=== PATIENT | male | born 1950 | race Caucasian/White ===

== ENCOUNTER 2018-07-20 15:41 | Inpatient (IN) ==
[2018-07-20] MEDS ORDERED: IOPAMIDOL 100 ML BOTTLE IV ONE (15:42)
[2018-07-20] MEDS ORDERED: 0.9 % SODIUM CHLORIDE 1,000 ML IV ONE (16:13)
--- NOTE | 2018-07-20 17:16 | Emergency Department Note ---
Fever HPI - General Chief Complaint: Fever Stated Complaint: Vomiting, fever, altered mentation Time Seen by Provider: 07/20/18 15:58 Source: patient Mode of arrival: ambulatory Limitations: no limitations - History of Present Illness HPI Narrative: Patient states his been having fever and chills over the past 2 days. But denies any cough or shortness of breath. Denies any sore throat or nasal congestion he has had some episodes of nausea and vomiting over the past 3 days. He was seen by Dr. Jocy Bonilla afternoon at [facility] and a white count was elevated at 21,300 and he is referred for further workup to the ED. Did have a pain pump replacement states 2 weeks ago but uncertain if this is valid as patient is a poor historian denies any urgency frequency or dysuriaTemperature is 98 to the pulse is 80 the respirations are 18 and pulse ox is 99% - Related Data Home Medications Medication Instructions Recorded Confirmed Citalopram [Celexa] 20 mg PO DAILY 09/24/17 07/20/18 Cyanocobalamin [Vitamin B12] 1,000 mcg IM MONTHLY 09/24/17 07/20/18 Fluticasone Propionate [Flonase] 1 spray NS DAILY 09/24/17 07/20/18 Gabapentin [Neurontin] 600 mg PO TID 09/24/17 07/20/18 Hydrochlorothiazide [Oretic] 25 mg PO DAILY 09/24/17 07/20/18 Levothyroxine [Synthroid] 125 mcg PO DAILY 09/24/17 07/20/18 Lisinopril [Zestril] 5 mg PO DAILY 09/24/17 07/20/18 Methocarbamol [Robaxin] 500 mg PO Q6HP PRN 09/24/17 07/20/18 Omeprazole [PriLOSEC] 20 mg PO ACB 09/24/17 07/20/18 Simvastatin [Zocor] 40 mg PO HS 09/24/17 07/20/18 Tamsulosin [Flomax] 0.4 mg PO BID 09/24/17 07/20/18 Zolpidem [Ambien] 10 mg PO HSP PRN 09/24/17 07/20/18 buPROPion HCL [Bupropion Xl] 300 mg PO DAILY 09/24/17 07/20/18 clonazePAM [Klonopin] 2 mg PO TID 09/24/17 07/20/18 Aspirin [Adult Low Dose Aspirin EC] 81 mg PO DAILY 07/20/18 07/20/18 Fexofenadine [Pretty] 1 - 2 tab PO DAILY 07/20/18 07/20/18 Potassium Chloride [Kdur] 20 meq PO DAILY 07/20/18 07/20/18 Allergies Allergy/AdvReac Type Severity Reaction Status Date / Time No Known Drug Allergies Allergy Verified 07/20/18 15:46 Review of Systems All systems ED: reviewed and negative except as stated. Constitutional: Reports: fever, chills Eyes: Denies: eye pain ENT ED: Denies: ear pain, throat pain Cardiovascular: Denies: chest pain, palpitations, dyspnea on exertion Respiratory: Denies: shortness of breath, cough, wheezes Gastrointestinal: Denies: abdominal pain, nausea, vomiting Genitourinary: Denies: dysuria, frequency, urgency Musculoskeletal: Denies: back pain, joint swelling Integumentary: Denies: rash, lesions Neurological: Denies: headache, weakness Psychiatric: Denies: anxiety, depression Endocrine: Denies: fatigue, heat or cold intolerance Hematological/Lymphatic: Denies: easy bleeding Allergic/Immunologic: Denies: facial swelling Fever PMH - Past Medical History PMFSH Narrative: All Active Problems Homicidal behavior (Acute) Excessive drinking alcohol (Acute) Agitation (Acute) Constipation (Acute) Urinary retention (Acute) Medical history: Reports: other (BPH history of retention) Surgical history ED: Reports: other (pain oump) Psychiatric history: Reports: anxiety Family history: Reports: no significant family history - Social History smoking status: Never smoker Alcohol use: Reports: Unknown (patient denies, however old records indicate alcohol abuse) Physical Exam Limitations: no limitations General appearance: alert Head: atraumatic, normocephalic Eye: Present: normal appearance, PERRL ENT: normal exam, normal oropharynx, mucous membranes moist Neck: Present: normal inspection, full ROM Chest: Present: normal inspection, symmetric chest wall rise. Absent: tenderness Respiratory: Present: normal lung sounds bilaterally. Absent: respiratory distress, rales/crackles, wheezes Cardiovascular: Present: regular rate, normal rhythm. Absent: bradycardia Abdominal: Present: soft, normal bowel sounds. Absent: distention, tenderness, guarding, rebound, rigidity Extremities: Present: normal inspection, full ROM. Absent: tenderness Back: Present: normal inspection, full ROM. Absent: tenderness, CVA tenderness (R) Neurological: Present: alert, oriented X3, CN II-XII intact, normal gait, reflexes normal. Absent: motor sensory deficit Psychiatric: Present: flat affect Course Vital Signs Temperature 98.2 F 07/20/18 15:42 Pulse Rate 80 07/20/18 15:42 Respiratory Rate 18 07/20/18 15:42 Pulse Oximetry (%) 99 07/20/18 15:42 Temperature 98.2 F 07/20/18 15:42 Pulse Rate 68 07/20/18 19:35 Respiratory Rate 14 07/20/18 19:35 Blood Pressure 132/82 07/20/18 19:20 Pulse Oximetry (%) 100 07/20/18 19:35 Fever - MDM Narrative Medical decision making narrative: BBC is elevated 18,700 the hemoglobin is 10.2 hematocrit 30.947 segs and 34 bands 16 lymphocytes Actiq acid was 1.3 CO2 is 15 the BUN is 36 creatinine is 1.6 test shows 3 WBCs to RBCs per high-power field. CT of the abdomen revealed a right lower lobe pneumonia - Lab Data Result diagrams: 07/20/18 17:00 Lab Results 07/20/18 07/20/18 07/20/18 Range/Units 16:20 16:20 17:00 WBC 18.7 H (4.5-11.0) K/mcL RBC 3.07 L (4.50-5.90) M/mcL Hgb 10.2 L (13.5-16.5) g/dL Hct 30.9 L (41.0-55.0) % POC Hct 32.0 L (41.0-55.0) % MCV 100.8 H (80.0-100.0) fL MCH 33.1 (26.0-34.0) pg MCHC 32.9 (31.0-36.0) g/dL RDW 15.1 H (11.5-14.5) % Plt Count 318 (140-440) K/mcL MPV 7.4 (7.4-10.4) fL Total Counted 100 Seg Neutrophils % 47 (38-78) % Band Neutrophils % 34 H (0-10) % Lymphocytes % 16 (15-49) % Monocytes % (Manual) 3 (1-12) % Platelet Estimate Normal (NORMAL) RBC Morphology Abnormal (NORMAL) Macrocytosis 1+ A (NONE SEEN) VBG Lactic Acid 1.3 (0.5-2.0) mmol/L POC Sodium 139 (133-145) mmol/L POC Potassium 3.7 (3.3-5.1) mmol/L POC Chloride 111 H (96-108) mmol/L POC Total CO2 15 L (22-30) mmol/L POC BUN 36 H (8-23) mg/dl POC Creatinine 1.6 H (0.7-1.2) mg/dl POC Glucose 101 (70-105) mg/dL POC WB Ioniz Calcium 1.21 (1.16-1.32) mmol/L Urine Color Urine Appearance Urine pH (5.0-9.0) Ur Specific [place] (1.000-1.035) Urine Protein (NEG) mg/dL Urine Glucose (UA) (NEG) mg/dL Urine Ketones (NEG) mg/dL Urine Occult Blood (<0.03) mg/dL Urine Nitrate (NEG) Urine Bilirubin (NEG) mg/dL Urine Urobilinogen (NEG) mg/dL Ur Leukocyte Esterase (NEG) /uL Urine RBC (0-1) /hpf Urine WBC (0-4) /hpf Ur Squamous Epith Cells (0-4) /hpf Urine Bacteria (0) /hpf Hyaline Casts (0-2) /lpf Granular Casts (0) /lpf Urine Mucus (0) /hpf Ur Culture Indicated? 07/20/18 Range/Units 17:48 WBC (4.5-11.0) K/mcL RBC (4.50-5.90) M/mcL Hgb (13.5-16.5) g/dL Hct (41.0-55.0) % POC Hct (41.0-55.0) % MCV (80.0-100.0) fL MCH (26.0-34.0) pg MCHC (31.0-36.0) g/dL RDW (11.5-14.5) % Plt Count (140-440) K/mcL MPV (7.4-10.4) fL Total Counted Seg Neutrophils % (38-78) % Band Neutrophils % (0-10) % Lymphocytes % (15-49) % Monocytes % (Manual) (1-12) % Platelet Estimate (NORMAL) RBC Morphology (NORMAL) Macrocytosis (NONE SEEN) VBG Lactic Acid (0.5-2.0) mmol/L POC Sodium (133-145) mmol/L POC Potassium (3.3-5.1) mmol/L POC Chloride (96-108) mmol/L POC Total CO2 (22-30) mmol/L POC BUN (8-23) mg/dl POC Creatinine (0.7-1.2) mg/dl POC Glucose (70-105) mg/dL POC WB Ioniz Calcium (1.16-1.32) mmol/L Urine Color Yellow Urine Appearance Clear Urine pH 5.0 (5.0-9.0) Ur Specific [place] 1.024 (1.000-1.035) Urine Protein Neg (NEG) mg/dL Urine Glucose (UA) Negative (NEG) mg/dL Urine Ketones Neg (NEG) mg/dL Urine Occult Blood Neg (<0.03) mg/dL Urine Nitrate Neg (NEG) Urine Bilirubin Neg (NEG) mg/dL Urine Urobilinogen Neg (NEG) mg/dL Ur Leukocyte Esterase Neg (NEG) /uL Urine RBC 2 H (0-1) /hpf Urine WBC 3 (0-4) /hpf Ur Squamous Epith Cells 0 (0-4) /hpf Urine Bacteria 0 (0) /hpf Hyaline Casts 68 H (0-2) /lpf Granular Casts 1 H (0) /lpf Urine Mucus Few (0) /hpf Ur Culture Indicated? No Disposition Pt seen by STILL OPERATOR/PA only: No Clinical Impression: Right lower lobe pneumonia Qualifiers: Pneumonia type: due to unspecified organism Qualified Code(s): J18.1 - Lobar pneumonia, unspecified organism Disposition: Xfer As Inpt ([facility]) Condition: Fair Referrals: Jocy Bonilla MD [Primary Care Provider] -
[2018-07-20 17:28] LABS: Mean Cell Volume 100.8 fL (80.0-100.0); Mean Corpuscular HGB Conc 32.9 g/dL (31.0-36.0); Platelet Count 318 K/mcL (140-440); RBC 3.07 M/mcL (4.50-5.90); Red Cell Distribution Width 15.1 % (11.5-14.5)
[2018-07-20 17:57] LABS: Band Neutrophils % 34 % (0-10); Lymphocytes % 16 % (15-49); Macrocytosis 1+ (NONE SEEN); Monocytes % (Manual) 3 % (1-12); Platelet Estimate NORMAL (NORMAL); RBC Morphology ABNORMAL (NORMAL); Segmented Neutrophils % 47 % (38-78)
[2018-07-20 18:04] LABS: Appearance,Urine CLEAR; Bacteria,Urine 0 /hpf (0); Bilirubin,Urine NEG (NEG); Color,Urine YELLOW; Glucose,Urine (UA) NEGATIVE (NEG); Leukocyte Esterase,Urine NEG /uL (NEG); Mucus,Urine FEW /hpf (0); Protein,Urine NEG (NEG); Specific Gravity,Urine 1.024 (1.000-1.035); Urine Blood NEG mg/dL (<0.03); Urine Granular Cast 1 /lpf (0); Urine Hyaline Cast 68 /lpf (0-2); Urine RBC 2 /hpf (0-1); Urine Squamous Epithelial Cell 0 /hpf (0-4); Urine WBC 3 /hpf (0-4); Urobilinogen,Urine NEG (NEG)
--- NOTE | 2018-07-20 18:33 | XRay Report ---
CLINICAL INFORMATION: elevated WBC count COMPARISON: 06/22/2009 FINDINGS: Heart size, mediastinum and pulmonary vessels are normal. Mild patchy right lower lobe infiltrate has developed. Small right pleural effusion also noted. IMPRESSION: Mild patchy right lower lobe infiltrate with small effusion Interpreted and Authenticated by: Garry Ellis 07/20/18
--- NOTE | 2018-07-20 19:30 | Cat Scan Report ---
CLINICAL INFORMATION: Vomiting, fever and elevated white blood cell count COMPARISON: None. TECHNIQUE: Following water enteric contrast, 70 cc of Isovue-300 were injected intravenously, and 60 seconds later, 0.625 mm helical slices were obtained from the mid heart through the subtrochanteric regions. Following reconstruction, 2.5 mm sagittal, coronal and axial reformatted images were processed and reviewed at bone, lung and soft tissue windows. Five minutes later, 0.625 mm helical slices were obtained from the mid heart through the kidneys and viewed at soft tissue windows.The exam was performed using radiation dose optimization techniques including, but not limited to, automated exposure control, adjustment of the mA and/or kV according to patient size and use of iterative reconstruction technique. FINDINGS: Lung bases show a moderatepatchy right lower lobe infiltrate. This is new from a [address] No effusion. Left lung base and heart are unremarkable. Images through the abdomen show the gallbladder and bile ducts, liver, both adrenal glands, spleen, pancreas and aorta are normal in size, configuration, attenuation without focal lesion. Scattered cysts in both kidneys ranging up to 15 mm in the inferior right kidney. A 9 mm low-attenuation lesion posterior cortex superior pole the right kidney unchanged from a 06/24/[address] It should represent a cyst Stomach, small bowel, large bowel and appendix are normal. Images through the pelvis show prostatic, seminal vesicles and urinary bladder are unremarkable. No free air, free fluid or adenopathy. Bone windows show L4-5 posterior fusion and laminectomy changes. The pain pump tubing extends extending through L2-3 leak interlaminar space and a stent in the epidural space to at least T8. No osseous abnormality IMPRESSION: 1. Moderate right lower lobe alveolar infiltrate compatible with pneumonia. This likely accounts for elevated white blood cell count 2. No evidence of abdominal or pelvic infection 3. Small simple cysts scattered throughout both kidneys 4. 3 cm periumbilical hernia containing only mesenteric fat Interpreted and Authenticated by: Garry Ellis 07/20/18
[2018-07-20] MEDS ORDERED: cefTRIAXone 1 GM VIAL IV ONE (19:35)
[2018-07-20] MEDS ORDERED: AZITHROMYCIN 500 MG in DEXTROSE 5% IN WATER 250 ML IV ONE (19:35)
[2018-07-20] MEDS ORDERED: HYDROcodone/APAP 5/325MG TABLET PO ONE (20:07)
--- NOTE | 2018-07-20 20:35 | Internal Med History&Physical ---
Medical - H&P: HPI Patient information: Note initiated : 07/20/18 at 8:31 pm Service Date, if different from initiated Date: [] Patient: Bj Nathan a 68 y/o M admitted on for Vomiting, fever, altered mentation. Chief Complaint: [] Chief complaint: fever and shaking chills History of present illness: Mr. Nathan is a 68 year old M with a history of alcoholism, chronic pain on pain pump, anxiety disorder and hypertension who presents to the ER after he was referred from primary care physician's office. Per history patient hasn't been feeling well over the last few days with frequent fevers shaking chills and generalized body aches. He also endorses to upper respiratory symptoms. He denies any sick contacts. He lives alone in an apartment. During evaluation in primary care physician's office was found to have white count over 21,000 and with concerns of sepsis he was directed for further workup. Initial workup in ER was consistent with right lower lobe pneumonia on chest imaging/white count over 18,000 with 34% bands. Hospitalist service was consulted for admission. Patient is probably started on antibiotics after cultures were drawn. At the time evaluation patient is alert however fairly anxious. He was able to answer some of the questions and endorses history as above and to fever along with chills that has evolved over the last 4 days. Patient frequently sidetracked during conversation and a detailed history could not be obtained. Part of the history was obtained from review of medical records and ER physician. Patient also had a skin tumor removed from his lower back 3 weeks ago but has been doing fine since procedure. Review of systems A 10 point review of system was performed and is negative except as discussed above Medical - H&P: PMH Medical history: Anxiety disorder Seasonal allergy disorder neuropathy Hypertension Hypothyroidism Hyperlipidemia GERD BPH Surgical history: Pain pump Social history: Lives alone 4 kids Ongoing divorce Smoking status: Smoker, status unknown Alcohol use: heavy Medical - H&P: Meds Home Medications Medication Instructions Recorded Confirmed Type Citalopram [Celexa] 20 mg PO DAILY 09/24/17 07/20/18 History Cyanocobalamin [Vitamin B12] 1,000 mcg IM MONTHLY 09/24/17 07/20/18 History Fluticasone Propionate [Flonase] 1 spray NS DAILY 09/24/17 07/20/18 History Gabapentin [Neurontin] 600 mg PO TID 09/24/17 07/20/18 History Hydrochlorothiazide [Oretic] 25 mg PO DAILY 09/24/17 07/20/18 History Levothyroxine [Synthroid] 125 mcg PO DAILY 09/24/17 07/20/18 History Lisinopril [Zestril] 5 mg PO DAILY 09/24/17 07/20/18 History Methocarbamol [Robaxin] 500 mg PO Q6HP PRN 09/24/17 07/20/18 History Omeprazole [PriLOSEC] 20 mg PO ACB 09/24/17 07/20/18 History Simvastatin [Zocor] 40 mg PO HS 09/24/17 07/20/18 History Tamsulosin [Flomax] 0.4 mg PO BID 09/24/17 07/20/18 History Zolpidem [Ambien] 10 mg PO HSP PRN 09/24/17 07/20/18 History buPROPion HCL [Bupropion Xl] 300 mg PO DAILY 09/24/17 07/20/18 History clonazePAM [Klonopin] 2 mg PO TID 09/24/17 07/20/18 History Aspirin [Adult Low Dose Aspirin EC] 81 mg PO DAILY 07/20/18 07/20/18 History Fexofenadine [Pretty] 1 - 2 tab PO DAILY 07/20/18 07/20/18 History Potassium Chloride [Kdur] 20 meq PO DAILY 07/20/18 07/20/18 History Guaifenesin 200 mg PO TID 07/21/18 07/21/18 History Allergies Allergy/AdvReac Type Severity Reaction Status Date / Time No Known Drug Allergies Allergy Verified 07/20/18 15:46 Medical - H&P: Exam - Constitutional Vitals: Temp Pulse Resp BP Pulse Ox 98.2 F 68 14 132/82 100 07/20/18 15:42 07/20/18 19:35 07/20/18 19:35 07/20/18 19:20 07/20/18 19:35 General appearance: moderate distress (anxious) Exam: Head normocephalic Neck no lymphadenopathy Oral cavity dry eye movements symmetrical Anxious Diminished breath sounds bases with expiratory rhonchi Late inspiratory crackles right posterior chest S1 and S2 regular rhythm Abdomen soft lower extremity no cyanosis clubbing Skin no suspicious lesion Psych anxious fidgety Neuro nonfocal Medical - H&P: Reslt - Labs CBC & Chem 7: 07/21/18 04:03 07/21/18 04:03 Labs: Short CBC 07/20/18 Range/Units 17:00 WBC 18.7 H (4.5-11.0) K/mcL Hgb 10.2 L (13.5-16.5) g/dL Hct 30.9 L (41.0-55.0) % Plt Count 318 (140-440) K/mcL Urine 07/20/18 Range/Units 17:48 Urine Color Yellow Urine Appearance Clear Urine pH 5.0 (5.0-9.0) Ur Specific [place] 1.024 (1.000-1.035) Urine Protein Neg (NEG) mg/dL Urine Glucose (UA) Negative (NEG) mg/dL Medical - H&P: A/P (1) Right lower lobe pneumonia Current visit: Yes Status: Acute * Right lower lobe pneumonia-broad antibiotic coverage. Pneumonia severity index over 100. Inpatient admission in light of end organ dysfunction/severe sepsis * Severe sepsis secondary to above-white count 18.7 with 34% bands, evidence of end organ dysfunction, continue management per guidelines, pancultures, antibiotic coverage * Acute kidney injury-creatinine 1.6. Continue crystalloids. Likely secondary to sepsis end organ dysfunction * Metabolic acidosis secondary to sepsis-continue monitoring * History of hypertension -hold hypertensive for 24 hours * Anxiety disorder continue bupropion/citalopram/clonazepam * Neuropathy continue gabapentin * Hypothyroidism continue thyroxine * GERD continue PPI * Hyperlipidemia continue statin * BPH continue Flomax * Prophylaxis heparin * Full code Plan * Broad antibiotic coverage * Sepsis management per guidelines * Pre-existing medical condition management as above * Monitor renal function * Inpatient admission. Anticipate a minimum of two midnight stay
[2018-07-20] MEDS ORDERED: ONDANSETRON 4 MG/2 ML VIAL IV PRN (20:38)
[2018-07-20] MEDS ORDERED: MAGNESIUM SULFATE 2 GM/50 ML BAG IV PRN (20:38)
[2018-07-20] MEDS ORDERED: POTASSIUM CHLORIDE 20 MEQ PACKET PO PRN (20:38)
[2018-07-20] MEDS: 0.9 % SODIUM CHLORIDE 1,000 ML IV SCH (21:25)
[2018-07-20] MEDS: LEVOFLOXACIN 750 MG/150 ML BAG IV SCH (21:26)
[2018-07-20 22:00] LABS: C-Reactive Protein 24.7 mg/dl (0.0-0.8)
[2018-07-20] MEDS: DOCUSATE SODIUM 100 MG CAPSULE PO SCH (22:04)
[2018-07-20] MEDS: ACETAMINOPHEN 325 MG TABLET PO PRN (22:04)
[2018-07-20] MEDS: GABAPENTIN 300 MG CAPSULE PO SCH (22:04)
[2018-07-20] MEDS: TAMSULOSIN 0.4 MG CAPSULE PO SCH (22:05)
[2018-07-20] MEDS: SENNOSIDES/DOCUSATE SODIUM 1 TAB TABLET PO SCH (22:05)
[2018-07-20] MEDS: ZOLPIDEM 5 MG TABLET PO PRN (22:05)
[2018-07-20] MEDS: 0.9 % SODIUM CHLORIDE 10 ML SYRINGE IV SCH (22:05)
[2018-07-20] MEDS: clonazePAM 1 MG TABLET PO SCH (22:05)
[2018-07-20] MEDS: HEPARIN 5,000 UNIT/ML VIAL SQ SCH (22:06)
[2018-07-20] MEDS: SIMVASTATIN 40 MG TABLET PO SCH (22:06)
[2018-07-20] MEDS: BUDESONIDE 0.5 MG/2 ML AMPUL.NEB NEB SCH (22:53)
[2018-07-20] MEDS: IPRATROPIUM/ALBUTEROL 3 ML AMPUL.NEB NEB SCH (22:53)
[2018-07-20] MEDS: METHOCARBAMOL 500 MG TABLET PO PRN (23:59)
[2018-07-20] MEDS: traZODone HCL 50 MG TABLET PO PRN (23:59)
[2018-07-21] MEDS: IPRATROPIUM/ALBUTEROL 3 ML AMPUL.NEB NEB SCH ×2 (03:16→06:50)
[2018-07-21] MEDS: ACETAMINOPHEN 325 MG TABLET PO PRN (03:40)
[2018-07-21] MEDS: 0.9 % SODIUM CHLORIDE 10 ML SYRINGE IV SCH ×3 (05:07→20:42)
[2018-07-21 06:14] LABS: Mean Cell Volume 101.7 fL (80.0-100.0); Mean Corpuscular HGB Conc 32.5 g/dL (31.0-36.0); Platelet Count 311 K/mcL (140-440); RBC 2.94 M/mcL (4.50-5.90); Red Cell Distribution Width 15.1 % (11.5-14.5)
[2018-07-21 06:18] LABS: ALT/SGPT 7 U/l (0-40); Albumin 3.2 gm/dL (3.2-5.2); Albumin/Globulin Ratio 1.1 (1.0-2.3); Alkaline Phosphatase 74 U/L (39-117); Bilirubin,Direct < 0.2 mg/dL (0.0-0.3); Blood Urea Nitrogen 28 mg/dl (8-23); Gamma Glutamyl Transpeptidase 17 U/L (8-61); Uric Acid 5.3 mg/dL (2.5-8.0)
[2018-07-21] MEDS: BUDESONIDE 0.5 MG/2 ML AMPUL.NEB NEB SCH ×2 (06:51→07:03)
[2018-07-21] MEDS: ACETAMINOPHEN 1,000 MG/100 ML BOTTLE IV PRN ×2 (07:14→20:56)
[2018-07-21] MEDS: OMEPRAZOLE 20 MG CAPSULE PO SCH (07:15)
[2018-07-21] MEDS: POTASSIUM CHLORIDE 20 MEQ TABLET PO SCH (07:16)
[2018-07-21] MEDS: METHOCARBAMOL 500 MG TABLET PO PRN (07:16)
[2018-07-21] MEDS: LEVOTHYROXINE 150 MCG TABLET PO SCH (07:17)
[2018-07-21 07:53] LABS: Band Neutrophils % 8 % (0-10); Lymphocytes % 10 % (15-49); Macrocytosis 1+ (NONE SEEN); Monocytes % (Manual) 4 % (1-12); Platelet Estimate NORMAL (NORMAL); RBC Morphology ABNORM (NORMAL); Segmented Neutrophils % 78 % (38-78)
[2018-07-21] MEDS: HYDROCHLOROTHIAZIDE 25 MG TABLET PO SCH (07:55)
[2018-07-21] MEDS: clonazePAM 1 MG TABLET PO SCH ×3 (07:55→20:38)
[2018-07-21] MEDS: buPROPion 150 MG TAB.XL.24H PO SCH (07:56)
[2018-07-21] MEDS: GABAPENTIN 300 MG CAPSULE PO SCH ×3 (07:56→20:37)
[2018-07-21] MEDS: MULTIVIT,THER IRON,CA,FA & MIN 1 TABLET PO SCH (07:56)
[2018-07-21] MEDS: TAMSULOSIN 0.4 MG CAPSULE PO SCH ×2 (07:56→20:38)
[2018-07-21] MEDS: DOCUSATE SODIUM 100 MG CAPSULE PO SCH ×2 (07:56→20:42)
[2018-07-21] MEDS: ASPIRIN 81 MG TAB.CHEW PO SCH (07:56)
[2018-07-21] MEDS: CITALOPRAM 20 MG TABLET PO SCH (07:56)
[2018-07-21] MEDS: HEPARIN 5,000 UNIT/ML VIAL SQ SCH ×2 (07:56→20:37)
[2018-07-21] MEDS: FLUTICASONE PROPIONATE SPRAY.NAS NS SCH (07:57)
[2018-07-21] MEDS: LISINOPRIL 5 MG TABLET PO SCH (07:58)
[2018-07-21] MEDS ORDERED: IPRATROPIUM/ALBUTEROL 3 ML AMPUL.NEB NEB PRN (09:11)
[2018-07-21] MEDS: cefTRIAXone 2 GM in DEXTROSE 5% IN WATER 50 ML IV SCH (11:02)
--- NOTE | 2018-07-21 12:01 | Internal Med Progress Note ---
Medical - PN: Subj Patient information: Note initiated : 07/21/18 at 11:56 am Service Date, if different from initiated Date: [] Patient: Bj Nathan a 68 y/o M admitted on 07/20/18 for Vomiting, fever, altered mentation. Chief Complaint: [] Interval history: Mr. Nathan is a 68 year old M with a history of alcoholism, chronic pain on pain pump, anxiety disorder and hypertension who presents to the ER after he was referred from primary care physician's office. Per history patient hasn't been feeling well over the last few days with frequent fevers shaking chills and generalized body aches. He also endorses to upper respiratory symptoms. He denies any sick contacts. He lives alone in an apartment. During evaluation in primary care physician's office was found to have white count over 21,000 and w ith concerns of sepsis he was directed for further workup. Initial workup in ER was consistent with right lower lobe pneumonia on chest imaging/white count over 18,000 with 34% bands. Hospitalist service was consulted for admission. Patient is probably started on antibiotics after cultures were drawn. At the time evaluation patient is alert however fairly anxious. He was able to answer some of the questions and endorses history as above and to fever along with chills that has evolved over the last 4 days. Patient frequently sidetracked during conversation and a detailed history could not be obtained. Part of the history was obtained from review of medical records and ER physician. Patient also had a skin tumor removed from his lower back 3 weeks ago but has been doing fine since procedure. 07/21-patient doing well. No overnight events. No concerns per staff. He remains anxious however much improved breathing. No shaking chills or high- grade fever. White count downtrending from 18.7-18. Sats on room air. Mycoplasma/strep pneumo serology negative. Bandemia resolved. Creatinine improved from 1.6-1.3. Continue existing treatment/nutrition support. Anticipate discharge in 24-48 hours if continues to improve and white count normalizes. - Constitutional Vitals: Vital Signs Temp Pulse Resp BP Pulse Ox 98.7 F 88 18 124/59 97 07/21/18 07:20 07/21/18 07:20 07/21/18 07:20 07/21/18 07:20 07/21/18 07:20 Period Temp Pulse Resp BP Sys/[place] Pulse Ox Last 24 Hr 97.9 F-98.7 F 65-90 - 105-144/59-92 95-100 Intake and Output 07/20/18 07/21/18 07/21/18 21:59 05:59 13:59 Intake Total 1000 500 440 Output Total 450 1601 300 Balance 550 -1101 140 Weight 153 lb Intake & Output: Intake & Output 07/20/18 07/21/18 07/21/18 21:59 05:59 13:59 Intake Total 1000 500 440 Output Total 450 1601 300 Balance 550 -1101 140 Weight 153 lb Intake: IV 1000 400 Sodium Chloride 0.9% 1,000 ml @ 1000 Wide Open IV BOLUS ONE Rx#: [id number] Oral 100 440 Output: Void Amount 450 1600 300 # of times incontinent of urine 1 Other: Meal Breakfast Percent of Meal Consumed 100% Urine Appearance Clear Clear Urine Color Bright Yellow Straw General appearance: no acute distress Exam: Improved anxiety Nonlabored breathing Nondistended abdomen Ambulating Medical - PN: Obj Da - Labs CBC & Chem 7: 07/21/18 04:03 07/21/18 04:03 Labs: Abnormal Lab Results 07/21/18 07/21/18 07/20/18 04:03 04:03 21:13 WBC 18.0 H RBC 2.94 L Hgb 9.7 L Hct 29.9 L POC Hct MCV 101.7 H RDW 15.1 H Band Neutrophils % Lymphocytes % 10 L RBC Morphology Abnorm A Macrocytosis 1+ A ESR POC Chloride Carbon Dioxide 15 L POC Total CO2 POC BUN BUN 28 H Creatinine 1.3 H POC Creatinine Glucose 112 H C-Reactive Protein 24.7 H Urine RBC Hyaline Casts Granular Casts 07/20/18 07/20/18 07/20/18 21:13 17:48 17:00 WBC 18.7 H RBC 3.07 L Hgb 10.2 L Hct 30.9 L POC Hct MCV 100.8 H RDW 15.1 H Band Neutrophils % 34 H Lymphocytes % RBC Morphology Macrocytosis 1+ A ESR 47 H POC Chloride Carbon Dioxide POC Total CO2 POC BUN BUN Creatinine POC Creatinine Glucose C-Reactive Protein Urine RBC 2 H Hyaline Casts 68 H Granular Casts 1 H 07/20/18 16:20 WBC RBC Hgb Hct POC Hct 32.0 L MCV RDW Band Neutrophils % Lymphocytes % RBC Morphology Macrocytosis ESR POC Chloride 111 H Carbon Dioxide POC Total CO2 15 L POC BUN 36 H BUN Creatinine POC Creatinine 1.6 H Glucose C-Reactive Protein Urine RBC Hyaline Casts Granular Casts Meds: Medications Acetaminophen (Tylenol) 650 mg PO Q4-6HP PRN PRN Reason: PAIN/FEVER > 101 Last Admin: 07/21/18 03:40 Dose: 650 mg Documented by: Albuterol/Ipratropium (Duoneb) 3 ml NEB Q4HP PRN PRN Reason: Shortness Of Breath Or Wheezing Aspirin (Aspirin) 81 mg PO DAILY [facility] Last Admin: 07/21/18 07:56 Dose: 81 mg Documented by: Bupropion HCl (Wellbutrin Xl) 300 mg PO DAILY [facility] Last Admin: 07/21/18 07:56 Dose: 300 mg Documented by: Citalopram Hydrobromide (Celexa) 20 mg PO DAILY [facility] Last Admin: 07/21/18 07:56 Dose: 20 mg Documented by: Clonazepam (Klonopin) 2 mg PO TID [facility] Last Admin: 07/21/18 07:55 Dose: 2 mg Documented by: Cyanocobalamin (Vitamin B12) 1,000 mcg IM MONTHLY [facility] Docusate Sodium (Colace) 100 mg PO BID [facility] Last Admin: 07/21/18 07:56 Dose: 100 mg Documented by: Fluticasone Propionate (Flonase) 1 spray NS DAILY [facility] Last Admin: 07/21/18 07:57 Dose: Not Given Documented by: Gabapentin (Neurontin) 600 mg PO TID [facility] Last Admin: 07/21/18 07:56 Dose: 600 mg Documented by: Heparin Sodium (Porcine) (Heparin) 5,000 unit SQ Q12 [facility] Last Admin: 07/21/18 07:56 Dose: 5,000 unit Documented by: Hydrochlorothiazide (Oretic) 25 mg PO DAILY [facility] Last Admin: 07/21/18 07:55 Dose: 25 mg Documented by: Ceftriaxone Sodium 2 gm/ (Dextrose) 50 mls @ 100 mls/hr IV Q24H [facility] Last Admin: 07/21/18 11:02 Dose: 100 mls/hr Documented by: Levofloxacin (Levaquin) 750 mg in 150 mls @ 100 mls/hr IV Q48H [facility] Last Infusion: 07/20/18 23:31 Dose: Infused Documented by: Magnesium Sulfate (Magnesium Sulfate) 2 gm in 50 mls @ 50 mls/hr IV UD PRN PRN Reason: MG = or < 1.7 Sodium Chloride (Sodium Chloride 0.9%) 1,000 mls @ 50 mls/hr IV .Q20H [facility] Stop: 07/23/18 08:37 Last Admin: 07/20/18 21:25 Dose: 50 mls/hr Documented by: Acetaminophen (Ofirmev) 1,000 mg in 100 mls @ 200 mls/hr IV Q6HP PRN PRN Reason: PAIN/FEVER > 101 Last Admin: 07/21/18 07:14 Dose: 200 mls/hr Documented by: Iron Carb/Multivit/[place]/Folic Acid (Multivitamin W/Minerals) 1 tab PO DAILY [facility] Last Admin: 07/21/18 07:56 Dose: 1 tab Documented by: Levothyroxine Sodium (Synthroid) 125 mcg PO ACB [facility] Last Admin: 07/21/18 07:17 Dose: 125 mcg Documented by: Lisinopril (Zestril) 5 mg PO DAILY [facility] Last Admin: 07/21/18 07:58 Dose: Not Given Documented by: Methocarbamol (Robaxin) 500 mg PO Q6HP PRN PRN Reason: Muscle Spasm Last Admin: 07/21/18 07:16 Dose: 500 mg Documented by: Omeprazole (Prilosec) 20 mg PO ACB [facility] Last Admin: 07/21/18 07:15 Dose: 20 mg Documented by: Ondansetron HCl (Zofran) 4 mg IV Q4-6HP PRN PRN Reason: Nausea And Vomiting Pneumococcal Polyvalent Vaccine (Pneumovax 23) 0.5 ml IM .ONCE ONE Stop: 07/22/18 10:01 Potassium Chloride (Klor-Con) 40 meq PO DAILYP PRN PRN Reason: K+ < 3.5 Potassium Chloride (Kdur) 20 meq PO QAMCC [facility] Last Admin: 07/21/18 07:16 Dose: 20 meq Documented by: Senna/Docusate Sodium (Senna Plus Tablet) 1 tab PO [facility] Last Admin: 07/20/18 22:05 Dose: 1 tab Documented by: Simvastatin (Zocor) 40 mg PO [facility] Last Admin: 07/20/18 22:06 Dose: 40 mg Documented by: Sodium Chloride (Saline Flush) 10 ml IV Q8 [facility] Last Admin: 07/21/18 05:07 Dose: Not Given Documented by: Tamsulosin HCl (Flomax) 0.4 mg PO BID [facility] Last Admin: 07/21/18 07:56 Dose: 0.4 mg Documented by: Trazodone HCl (Desyrel) 50 mg PO [facility] PRN PRN Reason: Insomnia Last Admin: 07/20/18 23:59 Dose: 50 mg Documented by: Zolpidem Tartrate (Ambien) 10 mg PO HSP PRN PRN Reason: Insomnia Last Admin: 07/20/18 22:05 Dose: 10 mg Documented by: Medical - PN: A/P - Time Spent With Patient Total time spent is greater than 50% in coordination of care (as documented) at patient's floor/unit and/or counseling patient: 25 - 35 minutes (1) Right lower lobe pneumonia Status: Acute Assessment and plan: * Right lower lobe pneumonia-clinical improvement noted on broad antibiotic coverage. * Severe sepsis secondary to above-clinical improvement noted with downtrending white count and improving end organ dysfunction. * Acute kidney injury-creatinine improved 1.3. Continue crystalloids. * Metabolic acidosis secondary severe sepsis. Clinically resolved * History of hypertension -restart home meds * Anxiety disorder continue bupropion/citalopram/clonazepam * Neuropathy continue gabapentin * Hypothyroidism continue thyroxine * GERD continue PPI * Hyperlipidemia continue statin * BPH continue Flomax * Prophylaxis heparin * Full code Plan * Continue Broad antibiotic coverage * Pre-existing medical condition management as above * Nutrition support/rehabilitation Current Visit: Yes Medical - PN: Qual - VTE Deep Vein Thrombosis/Pulmonary Embolism Present on Admission: No
[2018-07-21] MEDS: 0.9 % SODIUM CHLORIDE 1,000 ML IV SCH (16:35)
[2018-07-21] MEDS: ZOLPIDEM 5 MG TABLET PO PRN (20:38)
[2018-07-21] MEDS: traZODone HCL 50 MG TABLET PO PRN (20:38)
[2018-07-21] MEDS: SIMVASTATIN 40 MG TABLET PO SCH (20:38)
[2018-07-21] MEDS: SENNOSIDES/DOCUSATE SODIUM 1 TAB TABLET PO SCH (20:42)
[2018-07-22] MEDS: 0.9 % SODIUM CHLORIDE 1,000 ML IV SCH ×2 (00:39→13:19)
[2018-07-22] MEDS: 0.9 % SODIUM CHLORIDE 10 ML SYRINGE IV SCH (04:26)
[2018-07-22 05:57] LABS: Mean Cell Volume 100.8 fL (80.0-100.0); Mean Corpuscular HGB Conc 33.8 g/dL (31.0-36.0); Platelet Count 334 K/mcL (140-440); RBC 2.91 M/mcL (4.50-5.90); Red Cell Distribution Width 14.7 % (11.5-14.5)
[2018-07-22] MEDS: ACETAMINOPHEN 1,000 MG/100 ML BOTTLE IV PRN (06:02)
[2018-07-22 06:47] LABS: ALT/SGPT 6 U/l (0-40); Albumin 3.2 gm/dL (3.2-5.2); Alkaline Phosphatase 86 U/L (39-117); Bilirubin,Direct < 0.2 mg/dL (0.0-0.3); Blood Urea Nitrogen 10 mg/dl (8-23); Gamma Glutamyl Transpeptidase 21 U/L (8-61); Uric Acid 4.3 mg/dL (2.5-8.0)
[2018-07-22 07:39] LABS: Band Neutrophils % 3 % (0-10); Eosinophils % (Manual) 2 % (0-7); Lymphocytes % 16 % (15-49); Macrocytosis 1+ (NONE SEEN); Monocytes % (Manual) 4 % (1-12); Platelet Estimate NORMAL (NORMAL); RBC Morphology ABNORM (NORMAL); Segmented Neutrophils % 75 % (38-78)
[2018-07-22] MEDS: OMEPRAZOLE 20 MG CAPSULE PO SCH (07:49)
[2018-07-22] MEDS: GABAPENTIN 300 MG CAPSULE PO SCH (07:49)
[2018-07-22] MEDS: ASPIRIN 81 MG TAB.CHEW PO SCH (07:49)
[2018-07-22] MEDS: buPROPion 150 MG TAB.XL.24H PO SCH (07:49)
[2018-07-22] MEDS: DOCUSATE SODIUM 100 MG CAPSULE PO SCH (07:49)
[2018-07-22] MEDS: LISINOPRIL 5 MG TABLET PO SCH ×2 (07:50→07:59)
[2018-07-22] MEDS: CITALOPRAM 20 MG TABLET PO SCH (07:50)
[2018-07-22] MEDS: HEPARIN 5,000 UNIT/ML VIAL SQ SCH (07:50)
[2018-07-22] MEDS: HYDROCHLOROTHIAZIDE 25 MG TABLET PO SCH (07:50)
[2018-07-22] MEDS: clonazePAM 1 MG TABLET PO SCH (07:50)
[2018-07-22] MEDS: MULTIVIT,THER IRON,CA,FA & MIN 1 TABLET PO SCH (07:50)
[2018-07-22] MEDS: POTASSIUM CHLORIDE 20 MEQ TABLET PO SCH (07:50)
[2018-07-22] MEDS: FLUTICASONE PROPIONATE SPRAY.NAS NS SCH (07:51)
[2018-07-22] MEDS: LEVOTHYROXINE 150 MCG TABLET PO SCH (07:56)
[2018-07-22] MEDS: cefTRIAXone 2 GM in DEXTROSE 5% IN WATER 50 ML IV SCH (08:04)
[2018-07-22] MEDS: TAMSULOSIN 0.4 MG CAPSULE PO SCH (08:04)
--- NOTE | 2018-07-22 09:46 | Discharge Summary ---
Medical - DS: Prov Patient information: Note initiated : 07/22/18 at 9:44 am Service Date, if different from initiated Date: [] Patient: Bj Nathan 68 y/o M admitted on 07/20/18 for Vomiting, fever, altered mentation. Chief Complaint: [] Date of admission: 07/20/18 20:37 Discharge date: 07/22/18 Primary care physician: Jocy Bonilla Consults: 07/20/18 Consult to Physician [CONS] Stat Comment: Consulting Provider: Clay Maloney Reason For Exam: Physician to Consult Medical - DS: Meds - Discharge Medications Prescriptions: Cefdinir 300 mg PO BID #10 cap Levofloxacin [Levaquin] 750 mg PO DAILY #3 tab Active and Home Medications: Home Medications Citalopram [Celexa] 20 mg PO DAILY 09/24/17 [History Confirmed 07/20/18 Last Taken Unknown] Cyanocobalamin [Vitamin B12] 1,000 mcg IM MONTHLY 09/24/17 [History Confirmed 07/20/18 Last Taken Unknown] Fluticasone Propionate [Flonase] 1 spray NS DAILY 09/24/17 [History Confirmed 07/20/18 Last Taken Unknown] Gabapentin [Neurontin] 600 mg PO TID 09/24/17 [History Confirmed 07/20/18 Last Taken Unknown] Hydrochlorothiazide [Oretic] 25 mg PO DAILY 09/24/17 [History Confirmed 07/20/18 Last Taken Unknown] Levothyroxine [Synthroid] 125 mcg PO DAILY 09/24/17 [History Confirmed 07/20/18 Last Taken Unknown] Lisinopril [Zestril] 5 mg PO DAILY 09/24/17 [History Confirmed 07/20/18 Last Taken Unknown] Methocarbamol [Robaxin] 500 mg PO Q6HP PRN 09/24/17 [History Confirmed 07/20/18 Last Taken Unknown] Omeprazole [PriLOSEC] 20 mg PO ACB 09/24/17 [History Confirmed 07/20/18 Last Taken Unknown] Simvastatin [Zocor] 40 mg PO HS 09/24/17 [History Confirmed 07/20/18 Last Taken Unknown] Tamsulosin [Flomax] 0.4 mg PO BID 09/24/17 [History Confirmed 07/20/18 Last Taken Unknown] Zolpidem [Ambien] 10 mg PO HSP PRN 09/24/17 [History Confirmed 07/20/18 Last Taken Unknown] buPROPion HCL [Bupropion Xl] 300 mg PO DAILY 09/24/17 [History Confirmed 07/20/18 Last Taken Unknown] clonazePAM [Klonopin] 2 mg PO TID 09/24/17 [History Confirmed 07/20/18 Last Taken Unknown] Aspirin [Adult Low Dose Aspirin EC] 81 mg PO DAILY 07/20/18 [History Confirmed 07/20/18 Last Taken Unknown] Fexofenadine [Pretty] 1 - 2 tab PO DAILY 07/20/18 [History Confirmed 07/20/18 Last Taken Unknown] Potassium Chloride [Kdur] 20 meq PO DAILY 07/20/18 [History Confirmed 07/20/18 Last Taken Unknown] Guaifenesin 200 mg PO TID 07/21/18 [History Confirmed 07/21/18 Last Taken 07/20/18] Cefdinir 300 mg PO BID #10 cap 07/22/18 [Rx Last Taken Unknown] Levofloxacin [Levaquin] 750 mg PO DAILY #3 tab 07/22/18 [Rx Last Taken Unknown] Medical - DS: Hosp Hospital course: Discharge diagnosis * Right lower lobe pneumonia-clinical improvement noted on broad antibiotic coverage. Continue additional 5 days oral antibiotics * Severe sepsis secondary to above-clinical improvement noted . Leukocytosis resolved. Discharge in an additional 5 days antibiotics * Acute kidney injury-fully resolved. Creatinine down from 1.6 2->0.8 * Metabolic acidosis secondary severe sepsis. Resolved * History of hypertension -continue medications on discharge * Anxiety disorder continue bupropion/citalopram/clonazepam * Neuropathy continue gabapentin * Hypothyroidism continue thyroxine * GERD continue PPI * Hyperlipidemia continue statin * BPH continue Flomax Brief hospital course Mr. Nathan is a 68 year old M with a history of alcoholism, chronic pain on pain pump, anxiety disorder and hypertension who presents to the ER after he was referred from primary care physician's office. Per history patient hasn't been feeling well over the last few days with frequent fevers shaking chills and generalized body aches. He also endorses to upper respiratory symptoms. He denies any sick contacts. He lives alone in an apartment. During evaluation in primary care physician's office was found to have white count over 21,000 and with concerns of sepsis he was directed for further workup. Initial workup in ER was consistent with right lower lobe pneumonia on chest imaging/white count over 18,000 with 34% bands. Hospitalist service was consulted for admission. Patient is probably started on antibiotics after cultures were drawn. At the time evaluation patient is alert however fairly anxious. He was able to answer some of the questions and endorses history as above and to fever along with chills that has evolved over the last 4 days. Patient frequently sidetracked during conversation and a detailed history could not be obtained. Part of the history was obtained from review of medical records and ER physician. Patient also had a skin tumor removed from his lower back 3 weeks ago but has been doing fine since procedure. 07/21-patient doing well. No overnight events. No concerns per staff. He remains anxious however much improved breathing. No shaking chills or high- grade fever. White count downtrending from 18.7-18. Sats on room air. Mycoplasma/strep pneumo serology negative. Bandemia resolved. Creatinine improved from 1.6-1.3. Continue existing treatment/nutrition support. Anticipate discharge in 24-48 hours if continues to improve and white count no rmalizes. 07/22-patient doing well. No overnight events. Fever defervesced. Shortness resolved. White count downtrending. Continue antibiotic coverage for additional 5 days. Discharging with advice to follow with PCP. Discharge diagnosis: . - Time Spent with Patient Total time spent providing and/or coordinating discharge services: Greater than 30 minutes Medical - DS: Exam - Constitutional Vitals: Vital Signs Temp Pulse Pulse Resp BP BP Pulse Ox 07/22/18 07:16 98.7 F 72 14 110/65 94 07/22/18 04:25 98.9 F 73 14 135/75 94 07/21/18 23:35 98.7 F 72 14 119/74 96 07/21/18 21:00 97.8 F 86 14 118/99 96 07/21/18 20:00 14 96 07/21/18 17:32 99.9 F H 07/21/18 16:00 100.3 F H 81 20 147/75 07/21/18 12:00 97.7 F 92 H 18 138/69 95 Intake and Output 07/21/18 07/22/18 07/22/18 21:59 05:59 13:59 Intake Total 1150 1130 100 Output Total 625 550 Balance 525 580 100 Intake: IV 1150 100 100 Sodium Chloride 0.9% 1,000 ml @ 1000 50 mls/hr IV .Q20H [facility] Rx#: [id number] Oral 1030 Output: Void Amount 625 550 Other: Urine Appearance Clear Clear Urine Color Bright Yellow Bright Yellow # Voids 1 Weight 152 lb Medical - DS: Data Labs on day of discharge: Labs from last 24 hours 07/22/18 07/22/18 04:36 04:36 WBC 13.2 H RBC 2.91 L Hgb 9.9 L Hct 29.4 L MCV 100.8 H MCH 34.1 H MCHC 33.8 RDW 14.7 H Plt Count 334 MPV 7.4 Total Counted 100 Seg Neutrophils % 75 Band Neutrophils % 3 Lymphocytes % 16 Monocytes % (Manual) 4 Eosinophils % (Manual) 2 Platelet Estimate Normal RBC Morphology Abnorm A Macrocytosis 1+ A Sodium 140 Potassium 3.5 Chloride 109 H Carbon Dioxide 17 L Anion Gap 14.0 BUN 10 Creatinine 0.8 GFR Calculation 92 Glucose 102 Uric Acid 4.3 Calcium 9.2 Phosphorus 3.0 Magnesium 2.0 Total Bilirubin 0.3 Direct Bilirubin < 0.2 GGT 21 AST 14 ALT 6 Alkaline Phosphatase 86 Lactate Dehydrogenase 210 Total Protein 6.5 Albumin 3.2 Globulin 3.3 Albumin/Globulin Ratio 1.0 Triglycerides 139 Preliminary micro results at discharge 07/20/18 16:20 Blood Culture - Preliminary Blood 07/20/18 16:30 Blood Culture - Preliminary Blood Medical - DS: A/P - Patient/Caregiver Discharge Instructions Activity: increase activity as tolerated Diet: Regular Diet Additional Instructions: Follow-up PCP in 5 days I recommend primary care physician to check CBC BMP as a posthospital follow-up and Chest x-ray in 1 week. Antibiotics for additional 5 days oxygen @ 3 L Return to ER if worsening fever chills shortness of breath, diarrhea, bleeding Review risk and side effect profile of medications including antibiotics. Side effect may include mild to severe reaction including rash, diarrhea, cdiff and even which can be prevented by close follow-up with PCP and monitoring for side effects Continue diet and activity as advised Discussed importance of medication adherence Please review medication list with patient prior to discharge Please schedule follow-up with PCP/Providers prior to discharge and provide printouts Prescriptions: Cefdinir 300 mg PO BID #10 cap Levofloxacin [Levaquin] 750 mg PO DAILY #3 tab - Problem Maintenance (1) Right lower lobe pneumonia Status: Acute Qualifiers: Pneumonia type: due to unspecified organism Qualified Code(s): J18.1 - Lobar pneumonia, unspecified organism - Follow up Plan Follow up with: Jocy Bonilla MD [Primary Care Provider] - Disposition: Home, Self-Care Prognosis: Fair Rehab Potential: Fair I certify that the patient requires SNF services: No Overall status at discharge: patient is progressing back to baseline Medical - DS: Qual - VTE Deep Vein Thrombosis/Pulmonary Embolism Present on Admission: No
[2018-07-22] MEDS ORDERED: PNEUMOCOCCAL 23-VAL P-SAC VAC 0.5 ML SYRINGE IM ONE (10:00)
[2018-07-22] MEDS: LEVOFLOXACIN 750 MG/150 ML BAG IV SCH (10:03)
[2018-08-03] MEDS ORDERED: CYANOCOBALAMIN 1,000 MCG/ML VIAL IM SCH (09:00)
== END 2018-07-22 13:35 | disposition home or self-care (01) | DRG 871 ==
LOC: ED 15:41 → MEDSUR 20:37
PROVIDERS: ADMIT Internal Medicine; ATTEND Internal Medicine

== ENCOUNTER 2019-11-22 11:53 | Observation (INO) ==
[2019-11-22] MEDS ORDERED: IOPAMIDOL 100 ML BOTTLE IV ONE (11:54)
--- NOTE | 2019-11-22 12:04 | Emergency Department Note ---
Neuro HPI General Chief Complaint: Stroke Symptoms Stated Complaint: Left Sided Weakness Time Seen by Provider: 11/22/19 11:59 Source: patient Mode of arrival: ambulatory Limitations: no limitations History of Present Illness HPI Narrative: Narrative: This patient noted 24 hours ago that he was having left-sided weakness in his arm and leg with some difficulty walking and difficulty using his left hand. 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 He actually went to the pain clinic today the doctors there noted that he was having weakness and so sent him to the emergency room. He has had no change in speech vision and no headache. He does not take blood thinners. Has never had a stroke before. No history of diabetes or hypertension. Onset (ago): hour(s) Location: left arm and left leg History of same: No Severity: moderate Quality: weak and numb Improves with: none Worsens with: none Context: sudden onset On Anticoagulants: No Associated symptoms: Reports confusion; Denies chest pain, headaches, nausea/vomiting, vertigo, seizures and shortness of breath Treatments Prior to Arrival: none Related Data Home Medications Medication Instructions Recorded Confirmed acetaminophen 500 mg tablet 1,500 mg PO TID PRN tab 07/26/19 09/13/19 furosemide 40 mg tablet 40 mg PO QAM 09/13/19 09/13/19 mecobalamin (vitamin B12) 1,000 1,000 mcg PO QDAY 09/13/19 09/13/19 mcg chewable tablet tramadol 50 mg tablet 50 mg PO TID PRN 09/13/19 09/13/19 bupropion HCl 150 mg 24 hr tablet, See Rx Instructions PO .COMPLEX 11/22/19 11/22/19 extended release citalopram 20 mg tablet See Rx Instructions PO .COMPLEX 11/22/19 11/22/19 clonazepam 2 mg tablet See Rx Instructions PO .COMPLEX 11/22/19 11/22/19 cyanocobalamin (vitamin B-12) See Rx Instructions IM .COMPLEX 11/22/19 11/22/19 1,000 mcg/mL injection solution fexofenadine 180 mg tablet See Rx Instructions PO .COMPLEX 11/22/19 11/22/19 fluticasone propionate 50 See Rx Instructions INTRANASAL 11/22/19 11/22/19 mcg/actuation nasal .COMPLEX spray,suspension gabapentin 300 mg capsule See Rx Instructions PO .COMPLEX 11/22/19 11/22/19 hydrochlorothiazide 25 mg tablet See Rx Instructions PO .COMPLEX 11/22/19 11/22/19 ipratropium bromide 42 mcg (0.06 See Rx Instructions INTRANASAL 11/22/19 11/22/19 %) nasal spray .COMPLEX levothyroxine 150 mcg tablet See Rx Instructions PO .COMPLEX 11/22/19 11/22/19 methocarbamol 500 mg tablet See Rx Instructions PO .COMPLEX PRN 11/22/19 11/22/19 multivitamin See Rx Instructions PO .COMPLEX 11/22/19 omeprazole 20 mg capsule,delayed See Rx Instructions PO .COMPLEX 11/22/19 11/22/19 release potassium chloride 20 mEq See Rx Instructions PO .COMPLEX 11/22/19 11/22/19 tablet,extended release(part/cryst) simvastatin 40 mg tablet See Rx Instructions PO .COMPLEX 11/22/19 11/22/19 tamsulosin 0.4 mg capsule See Rx Instructions PO .COMPLEX 11/22/19 11/22/19 trazodone 50 mg tablet See Rx Instructions PO .COMPLEX 11/22/19 11/22/19 zolpidem 10 mg tablet See Rx Instructions PO .COMPLEX PRN 11/22/19 11/22/19 Allergies Allergy/AdvReac Type Severity Reaction Status Date / Time cephalexin [From Keflex] Allergy Severe Unknown Verified 09/13/19 12:50 Cyclobenzaprine Allergy Unknown Unknown Verified 09/13/19 12:50 [From Flexeril] fentanyl AdvReac Unknown nausea and Verified 11/22/19 11:54 vomiting Review of Systems ROS ROS Narrative: Narrative: All systems ED: reviewed and negative except as stated. 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) Hyperlipidemia (Chronic) Hypotension, unspecified (Chronic) Hypertensive chronic kidney disease with stage 1 through stage 4 chronic kidney disease, or unspecified chronic kidney disease (Chronic) Anorexia (Chronic) Osteoarthritis (Chronic) Back pain (Chronic) Polyarthralgia (Chronic) Long-term use of aspirin therapy (Chronic) Seasonal allergies (Chronic) BPH (benign prostatic hyperplasia) (Chronic) GERD (gastroesophageal reflux disease) (Chronic) Mixed hyperlipidemia (Chronic) COPD (chronic obstructive pulmonary disease) (Chronic) Asthma (Chronic) Pain of right hip joint (Chronic) Lumbosacral radiculitis (Chronic) Failed back syndrome (Chronic) Idiopathic osteoarthritis (Chronic) ELINOR positive (Chronic) Elevated erythrocyte sedimentation rate (Chronic) Macrocytic anemia (Chronic) Insomnia (Chronic) Hypothyroidism (Chronic) Hypertension (Chronic) Urinary hesitancy (Chronic) Anxiety and depression (Chronic) Acute bronchospasm (Chronic) Dizziness and giddiness (Chronic) Acute hypokalemia (Chronic) Arthritis (Chronic) Homicidal behavior (Chronic) Excessive drinking alcohol (Chronic) Agitation (Chronic) Constipation (Chronic) Urinary retention (Chronic) Right lower lobe pneumonia (Chronic) Medical History (Updated 11/22/19 @ 19:06 by Goyo Reid MD) Acute bronchospasm (Chronic) Acute hypokalemia (Chronic) Agitation (Chronic) ELINOR positive (Chronic) Anorexia (Chronic) Anxiety and depression (Chronic) Arthritis (Chronic) Asthma (Chronic) Back pain (Chronic) 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) BPH (benign prostatic hyperplasia) (Chronic) Chronic pain (Chronic) with intrathecal pump in place Constipation (Chronic) COPD (chronic obstructive pulmonary disease) (Chronic) Dizziness and giddiness (Chronic) Elevated erythrocyte sedimentation rate (Chronic) Excessive drinking alcohol (Chronic) Failed back syndrome (Chronic) GERD (gastroesophageal reflux disease) (Chronic) Homicidal behavior (Chronic) Hyperlipidemia (Chronic) Hypertension (Chronic) Hypertensive chronic kidney disease with stage 1 through stage 4 chronic kidney disease, or unspecified chronic kidney disease (Chronic) Hypotension, unspecified (Chronic) Hypothyroidism (Chronic) Idiopathic osteoarthritis (Chronic) Insomnia (Chronic) Long-term use of aspirin therapy (Chronic) Low back pain (Chronic) Lumbosacral radiculitis (Chronic) Macrocytic anemia (Chronic) Mixed hyperlipidemia (Chronic) Myofascial pain (Chronic) Neuropathic pain (Chronic) right lower limb Osteoarthritis (Chronic) Pain of right hip joint (Chronic) Polyarthralgia (Chronic) Right lower lobe pneumonia (Chronic) Seasonal allergies (Chronic) Soft tissue disorder, unspecified (Chronic) 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) Urinary hesitancy (Chronic) Urinary retention (Chronic) Surgical History History of back surgery (Chronic ~2015) fusion 2016 History of colonoscopy (Chronic ~2014) History of left knee surgery (Chronic ~2001) History of right knee surgery (Chronic ~2003) History of shoulder surgery (Chronic ~2006) left 2006; right shoulder reversal 2010 History of tonsillectomy (Chronic) S/P epidural steroid injection (Chronic) LESI #3 L3-4 w/o sed 05/06/19, LESI #2 L3-4 w/o sed 02/18/19, LESI #1 L3-4 w/o sed 11/10/2018, TF CHELLE #2 Right L4-5 w/o sed 07/06/15, TF CHELLE #1 Right L4-5 w/o sed 06/15/15 S/P insertion of intrathecal pump (Acute) Replacement [employer] pump w/ sed 06/10/18, Replacement [employer] Pump Implant ([facility]) 10/11/2011 Family History Mother Arthritis Cancer Father Hypertension Diabetes Son Diabetes Social History Smoking Status: Former smoker Alcohol Intake Frequency: does not drink Substance Use: marijuana Exam Narrative Narrative: Narrative: General Limitations: no limitations Head Head: atraumatic, normocephalic and normal inspection Eye Eye: Present normal appearance, PERRL and EOMI; Absent scleral icterus and conjunctival injection ENT ENT: Present normal exam Neck Neck: Present normal inspection and full ROM Chest Chest: Present normal inspection and symmetric chest wall rise Respiratory Respiratory: Present normal lung sounds bilaterally; Absent respiratory distress, rales/crackles and wheezes Cardiovascular Cardiovascular: Present regular rate, normal rhythm and normal heart sounds Adbominal Abdominal: Present soft; Absent distention and tenderness Extremities Extremities: Present normal inspection; Absent pedal edema and pretibial edema Neurological Neurological: Present alert Expanded Neurological Speech: Present fluid speech CRANIAL NERVES: EOM function (II, III, IV, ): Normal, facial sensation (V): Normal and facial palsy (VII): Normal Motor strength - LUE: 5/5 Motor strength - RUE: 5/5 Motor strength - LLE: 5/5 Motor strength - RLE: 5/5 Psychiatric Psychiatric: Present normal affect Skin Skin: Present warm and dry; Absent diaphoretic and diaphoresis Course Vital Signs Vital signs: Vital Signs Temperature 98.0 F 11/22/19 11:54 Pulse Rate 80 11/22/19 11:54 Respiratory Rate 22 11/22/19 11:54 Blood Pressure 153/113 11/22/19 11:54 Pulse Oximetry (%) 95 11/22/19 11:54 Temperature 98.0 F 11/22/19 11:54 Pulse Rate 61 11/22/19 17:57 Respiratory Rate 13 11/22/19 17:57 Blood Pressure 107/62 11/22/19 17:31 Pulse Oximetry (%) 94 11/22/19 17:57 MDM MDM Narrative Medical decision making narrative: Narrative: 0130 -this patient work-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 I discussed the case with the stroke neurologist who recommends doing a brain MRI to rule out a cerebellar stroke. That will be ordered and done within about an hour and a half. 1903 -patient's brain MRI was negative and the neuro hospitalist at [facility] reviewed all of the scans and felt the patient does not need to come to [facility] and that he can be admitted here and have a cervical MRI done tomorrow but does recommend aspirin Plavix and Lipitor. I discussed the case with Dr. Steinberg and he will be admitted to the hospital. Lab Data Result diagrams: 11/22/19 12:12 11/22/19 12:12 Labs: Lab Results 11/22/19 11/22/19 11/22/19 Range/Units 12:12 12:12 12:12 WBC 7.5 (4.50-11.00) K/mcL RBC 3.56 L (4.63-6.08) M/mcL Hgb 10.6 L (13.7-17.5) g/dL Hct 33.8 L (40.1-51.0) % POC Hct 35.0 L (41.0-55.0) % MCV 94.9 (80.0-100.0) fL MCH 29.8 (26.0-34.0) pg MCHC 31.4 (31.0-36.0) g/dL RDW 15.3 H (11.5-14.5) % Plt Count 277 (140-440) K/mcL MPV 9.1 (7.4-10.4) fL Gran % 66.6 (38.0-78.0) % Lymph % (Auto) 21.3 (15.5-49.0) % [place] % (Auto) 10.1 (1.0-12.0) % Eos % (Auto) 1.5 (0.0-7.0) % Baso % (Auto) 0.5 (0.0-2.0) % Gran # 4.96 (1.80-8.00) K/mcL Lymph # (Auto) 1.59 (1.50-4.80) K/mcL [place] # (Auto) 0.75 (0.10-0.90) K/mcL Eos # (Auto) 0.11 (0.00-0.70) K/mcL Baso # (Auto) 0.04 (0.00-0.30) K/mcL POC PT 14.7 H (11.9-14.5) sec POC INR 1.2 (0.9-1.2) APTT 43 H (20-37) sec POC Sodium 139 (133-145) mmol/L Sodium 136 (133-145) mmol/L POC Potassium 3.8 (3.3-5.1) mmol/L Potassium 3.9 (3.3-5.1) mmol/L POC Chloride 102 (96-108) mmol/L Chloride 100 (96-108) mmol/L Carbon Dioxide 22 (22-30) mmol/L POC Total CO2 24 (22-30) mmol/L Anion Gap 14.0 (8-16) POC BUN 38 H (8-23) mg/dl BUN 40 H (8-23) mg/dl Creatinine 1.2 (0.7-1.2) mg/dl POC Creatinine 1.0 (0.7-1.2) mg/dl GFR Calculation 62 Glucose 114 H (70-105) mg/dL POC Glucose 111 H (70-105) mg/dL Calcium 9.5 (8.6-10.4) mg/dl POC WB Ioniz Calcium 1.28 (1.16-1.32) mmol/L Total Bilirubin 0.3 (0.0-1.0) mg/dL AST 23 (0-37) U/l ALT < 5 (0-40) U/l Alkaline Phosphatase 83 (39-117) U/L Troponin T (0-0.03) ng/ml Total Protein 7.7 (5.9-8.4) gm/dL Albumin 4.0 (3.2-5.2) gm/dL Globulin 3.7 (2.2-3.7) gm/dL Albumin/Globulin Ratio 1.1 (1.0-2.3) Urine Color Urine Appearance Urine pH (5.0-9.0) Ur Specific [place] (1.000-1.035) Urine Protein (NEG) mg/dL Urine Glucose (UA) (NEG) mg/dL Urine Ketones (NEG) mg/dL Urine Occult Blood (<0.03) mg/dL Urine Nitrate (NEG) Urine Bilirubin (NEG) mg/dL Urine Urobilinogen (NEG) mg/dL Ur Leukocyte Esterase (NEG) /uL Urine RBC (0-1) /hpf Urine WBC (0-4) /hpf Ur Squamous Epith Cells (0-4) /hpf Urine Bacteria (0) /hpf Ur Culture Indicated? 11/22/19 11/22/19 Range/Units 12:12 14:00 WBC (4.50-11.00) K/mcL RBC (4.63-6.08) M/mcL Hgb (13.7-17.5) g/dL Hct (40.1-51.0) % POC Hct (41.0-55.0) % MCV (80.0-100.0) fL MCH (26.0-34.0) pg MCHC (31.0-36.0) g/dL RDW (11.5-14.5) % Plt Count (140-440) K/mcL MPV (7.4-10.4) fL Gran % (38.0-78.0) % Lymph % (Auto) (15.5-49.0) % [place] % (Auto) (1.0-12.0) % Eos % (Auto) (0.0-7.0) % Baso % (Auto) (0.0-2.0) % Gran # (1.80-8.00) K/mcL Lymph # (Auto) (1.50-4.80) K/mcL [place] # (Auto) (0.10-0.90) K/mcL Eos # (Auto) (0.00-0.70) K/mcL Baso # (Auto) (0.00-0.30) K/mcL POC PT (11.9-14.5) sec POC INR (0.9-1.2) APTT (20-37) sec POC Sodium (133-145) mmol/L Sodium (133-145) mmol/L POC Potassium (3.3-5.1) mmol/L Potassium (3.3-5.1) mmol/L POC Chloride (96-108) mmol/L Chloride (96-108) mmol/L Carbon Dioxide (22-30) mmol/L POC Total CO2 (22-30) mmol/L Anion Gap (8-16) POC BUN (8-23) mg/dl BUN (8-23) mg/dl Creatinine (0.7-1.2) mg/dl POC Creatinine (0.7-1.2) mg/dl GFR Calculation Glucose (70-105) mg/dL POC Glucose (70-105) mg/dL Calcium (8.6-10.4) mg/dl POC WB Ioniz Calcium (1.16-1.32) mmol/L Total Bilirubin (0.0-1.0) mg/dL AST (0-37) U/l ALT (0-40) U/l Alkaline Phosphatase (39-117) U/L Troponin T < 0.01 (0-0.03) ng/ml Total Protein (5.9-8.4) gm/dL Albumin (3.2-5.2) gm/dL Globulin (2.2-3.7) gm/dL Albumin/Globulin Ratio (1.0-2.3) Urine Color Straw Urine Appearance Clear Urine pH 6.0 (5.0-9.0) Ur Specific [place] 1.024 (1.000-1.035) Urine Protein 30 A (NEG) mg/dL Urine Glucose (UA) Negative (NEG) mg/dL Urine Ketones Neg (NEG) mg/dL Urine Occult Blood >=1.0 A (<0.03) mg/dL Urine Nitrate Neg (NEG) Urine Bilirubin Neg (NEG) mg/dL Urine Urobilinogen Neg (NEG) mg/dL Ur Leukocyte Esterase Neg (NEG) /uL Urine RBC 15 H (0-1) /hpf Urine WBC 0 (0-4) /hpf Ur Squamous Epith Cells < 1 (0-4) /hpf Urine Bacteria 0 (0) /hpf Ur Culture Indicated? No Discharge Plan Patient/Caregiver Discharge Instructions Pt seen by MEASUREMENT SUPERINTENDENT/PA only: No Clinical Impression: Acute CVA (cerebrovascular accident) Patient Disposition: Xfer As Inpt ([facility]) Follow up with: Jocy Bonilla MD [Primary Care Provider] - Prescriptions: No Action furosemide 40 mg tablet 40 mg PO QAM RF: 0 tramadol 50 mg tablet 50 mg PO TID PRNRF: 0 mecobalamin (vitamin B12) 1,000 mcg tablet,chewable 1,000 mcg PO QDAY RF: 0 trazodone 50 mg tablet See Rx Instructions PO .COMPLEX RF: 0 acetaminophen [Acetaminophen Extra Strength] 500 mg tablet 1,500 mg PO TID PRNRF: 0 multivitamin capsule See Rx Instructions PO .COMPLEX RF: 0 ipratropium bromide 42 mcg (0.06 %) spray,non-aerosol See Rx Instructions INTRANASAL .COMPLEX RF: 0 bupropion HCl 150 mg tablet extended release 24 hr See Rx Instructions PO .COMPLEX RF: 0 citalopram 20 mg tablet See Rx Instructions PO .COMPLEX RF: 0 clonazepam 2 mg tablet See Rx Instructions PO .COMPLEX RF: 0 cyanocobalamin (vitamin B-12) 1,000 mcg/mL solution See Rx Instructions IM .COMPLEX RF: 0 fluticasone propionate 50 mcg/actuation spray,suspension See Rx Instructions intranasal .COMPLEX RF: 0 gabapentin 300 mg capsule See Rx Instructions PO .COMPLEX RF: 0 zolpidem 10 mg tablet See Rx Instructions PO .COMPLEX PRN (Reason: Insomnia) RF: 0 tamsulosin 0.4 mg capsule See Rx Instructions PO .COMPLEX RF: 0 simvastatin 40 mg tablet See Rx Instructions PO .COMPLEX RF: 0 omeprazole 20 mg capsule,delayed release(DR/EC) See Rx Instructions PO .COMPLEX RF: 0 methocarbamol 500 mg tablet See Rx Instructions PO .COMPLEX PRN (Reason: Muscle Spasm) RF: 0 levothyroxine 150 mcg tablet See Rx Instructions PO .COMPLEX RF: 0 hydrochlorothiazide 25 mg tablet See Rx Instructions PO .COMPLEX RF: 0 fexofenadine 180 mg tablet See Rx Instructions PO .COMPLEX RF: 0 potassium chloride 20 mEq tablet,ER particles/crystals See Rx Instructions PO .COMPLEX RF: 0
[2019-11-22 12:24] LABS: POC Blood Urea Nitrogen 38 mg/dl (8-23); POC CO2 24 mmol/L (22-30); POC Calcium, Ionized 1.28 mmol/L (1.16-1.32); POC Chloride 102 mmol/L (96-108); POC Glucose, Random 111 mg/dL (70-105); POC Potassium 3.8 mmol/L (3.3-5.1); POC Sodium 139 mmol/L (133-145)
[2019-11-22 12:25] LABS: POC INR 1.2 (0.9-1.2); POC Pro Time 14.7 sec (11.9-14.5)
--- NOTE | 2019-11-22 12:28 | Cat Scan Report ---
INDICATION: Neuro Deficit/acute stroke COMPARISON: None. TECHNIQUE: Axial noncontrast-enhanced images through the brain. Sagittally and coronally reformatted images. FINDINGS: Cerebral hemispheres:Negative. No intra-axial abnormality. No intra-axial hematoma. No localized mass effect. Brain volume is within normal limits. No hydrocephalus Brainstem and cerebellum:No intra-axial abnormality Extra-axial:No acute hemorrhage. No subdural or epidural hematoma. No subarachnoid hemorrhage. Basilar cisterns are normal Calvarial:No calvarial fracture. No lytic lesion Temporal bones are negative. No destructive lesions Soft tissue:Orbits and visualized facial soft tissues are grossly normal. IMPRESSION: Negative noncontrast enhanced brain CT scan The exam was performed using radiation dose optimization techniques including, but not limited to, automated exposure control, adjustment of the mA and/or kV according to patient size and use of iterative reconstruction technique. Interpreted and Authenticated by: Garry Caballero 11/22/19
[2019-11-22 12:54] LABS: Basophils # (Auto) 0.04 K/mcL (0.00-0.30); Basophils % (Auto) 0.5 % (0.0-2.0); Eosinophils # (Auto) 0.11 K/mcL (0.00-0.70); Eosinophils % (Auto) 1.5 % (0.0-7.0); Granulocytes % (Auto) 66.6 % (38.0-78.0); Hematocrit 33.8 % (40.1-51.0); Hemoglobin 10.6 g/dL (13.7-17.5); Lymphocytes # (Auto) 1.59 K/mcL (1.50-4.80); Lymphocytes % (Auto) 21.3 % (15.5-49.0); Mean Cell Volume 94.9 fL (80.0-100.0); Mean Corpuscular HGB Conc 31.4 g/dL (31.0-36.0); Mean Platelet Volume 9.1 fL (7.4-10.4); Monocytes # (Auto) 0.75 K/mcL (0.10-0.90); Monocytes % (Auto) 10.1 % (1.0-12.0); Platelet Count 277 K/mcL (140-440); RBC 3.56 M/mcL (4.63-6.08); Red Cell Distribution Width 15.3 % (11.5-14.5); WBC 7.5 K/mcL (4.50-11.00)
[2019-11-22 13:22] LABS: Chloride 100 mmol/L (96-108)
[2019-11-22 13:25] LABS: ALT/SGPT < 5 U/l (0-40); AST/SGOT 23 U/l (0-37); Albumin/Globulin Ratio 1.1 (1.0-2.3); Alkaline Phosphatase 83 U/L (39-117); Bilirubin,Total 0.3 mg/dL (0.0-1.0); Blood Urea Nitrogen 40 mg/dl (8-23); Calcium 9.5 mg/dl (8.6-10.4); Carbon Dioxide 22 mmol/L (22-30); Globulin 3.7 gm/dL (2.2-3.7); Glomerular Filtration Rate 62; Glucose 114 mg/dL (70-105)
[2019-11-22] MEDS ORDERED: ATORVASTATIN 40 MG TABLET PO ONE (14:00)
[2019-11-22] MEDS ORDERED: ASPIRIN 81 MG TAB.CHEW CHEWED ONE (14:00)
[2019-11-22] MEDS: HYDROmorphone 0.5 MG/0.5 ML SYRINGE IV PRN ×2 (14:23→19:13)
[2019-11-22 15:18] LABS: Appearance,Urine CLEAR; Bacteria,Urine 0 /hpf (0); Bilirubin,Urine NEG (NEG); Color,Urine STRAW; Culture Indicated,Urine NO; Glucose,Urine (UA) NEGATIVE (NEG); Ketones,Urine NEG (NEG); Leukocyte Esterase,Urine NEG /uL (NEG); Nitrate,Urine NEG (NEG); Protein,Urine 30 mg/dL (NEG); Specific Gravity,Urine 1.024 (1.000-1.035); Urine Blood >=1.0 mg/dL (<0.03); Urine RBC 15 /hpf (0-1); Urine Squamous Epithelial Cell < 1 /hpf (0-4); Urine WBC 0 /hpf (0-4); Urobilinogen,Urine NEG (NEG)
--- NOTE | 2019-11-22 15:43 | Magnetic Resonance Report ---
INDICATION: Left arm weakness COMPARISON: Previous brain CT scan dated 11/22/2019. Previous CTA of the head and neck dated 11/22/2019 TECHNIQUE: Sagittal T1 FLAIR images. Axial DWI, T1 FLAIR, T2 FLAIR, T2, GRE. Coronal T2 FSE. FINDINGS: Cerebral hemispheres:No restricted diffusion. No acute infarction. No susceptibility. No hemorrhagic abnormality. No intra-axial signal abnormality or localized mass effect. There is mild cerebral atrophy with prominent ventricles and superficial subarachnoid spaces. No hydrocephalus. Brain stem and cerebellum:No intra-axial abnormalities. No restricted diffusion. No acute cerebellar infarction Extra-axial:Normal flow void within vessels at the base of the brain. No subdural or epidural hematoma. No detectable subarachnoid hemorrhage Cavernous sinuses and basilar cisterns are normal. Skull:No calvarial lesions. No lytic lesion. No detectable fracture. Temporal bones:Mastoid sinuses are normal. No fluid or soft tissue intensity within either middle ear. Inner ear structures are normal Orbits, facial soft tissues:Globes are normal. No intraorbital abnormality. Facial soft tissues are negative Paranasal sinuses:Maxillary, frontal, ethmoid sinuses are negative. Sphenoid sinuses are negative. No mucosal thickening. No air-fluid levels. No discrete soft tissue mass IMPRESSION: Negative examination. No acute abnormality Interpreted and Authenticated by: Garry Caballero 11/22/19
[2019-11-22] MEDS ORDERED: CLOPIDOGREL 300 MG TABLET PO ONE (19:04)
--- NOTE | 2019-11-22 19:16 | Internal Med History&Physical ---
HPI History of Present Illness Patient information: Note initiated : 11/22/19 at 7:16 pm Service Date, if different from initiated Date: [] Patient: Bj Nathan a 69 y/o M admitted on for Left Sided Weakness. Chief Complaint: [] History of present illness: Mr. Nathan is a 69 year old M with a history of chronic pain on pain pump/multilevel spinal DJD with pain and history of fusion, anxiety, neuropathy who presents to the ER with acute onset left arm weakness that started early this morning. Patient lives alone and has been dealing with his chronic pain. He attempted a fentanyl patch yesterday. On Friday evening he fell down 6 steps on the stairs fortunately without significant injuries. However over the next 48 hours he started noticing weakness involving left upper extremity unable to grasp objects and noticed wrist dropping. He denied associated thunderclap headache, tearing neck pain, incontinence, loss of consciousness, vertigo, diplopia or swallowing difficulty. He however had progressive worsening of neck and right shoulder pain following fall. He was evaluated the pain clinic and was subsequently referred to the ER for evaluation of weakness involving his left upper extremities concerning for neurological changes. Initial work-up in the ER was consistent with possible acute CVA with NIH score of 2. Stroke neurologist consulted. Brain MRI/CT angiogram head neck unremarkable for acute process. Neurology recommended aspirin Plavix and statin and a C-spine MRI to rule out nerve impingement as a cause of left arm weakness. Hospitalist service was consulted At the time of evaluation patient is alert and oriented. He was able to answer most the question endorse history as above. He denies recent changes in medications, seizure episodes. 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) BPH (benign prostatic hyperplasia) (Chronic) Chronic pain (Chronic) with intrathecal pump in place Constipation (Chronic) COPD (chronic obstructive pulmonary disease) (Chronic) Dizziness and giddiness (Chronic) Elevated erythrocyte sedimentation rate (Chronic) Excessive drinking alcohol (Chronic) Failed back syndrome (Chronic) GERD (gastroesophageal reflux disease) (Chronic) Homicidal behavior (Chronic) Hyperlipidemia (Chronic) Hypertension (Chronic) Hypertensive chronic kidney disease with stage 1 through stage 4 chronic kidney disease, or unspecified chronic kidney disease (Chronic) Hypotension, unspecified (Chronic) Hypothyroidism (Chronic) Idiopathic osteoarthritis (Chronic) Insomnia (Chronic) Long-term use of aspirin therapy (Chronic) Low back pain (Chronic) Lumbosacral radiculitis (Chronic) Macrocytic anemia (Chronic) Mixed hyperlipidemia (Chronic) Myofascial pain (Chronic) Neuropathic pain (Chronic) right lower limb Osteoarthritis (Chronic) Pain of right hip joint (Chronic) Polyarthralgia (Chronic) Right lower lobe pneumonia (Chronic) Seasonal allergies (Chronic) Soft tissue disorder, unspecified (Chronic) 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) Urinary hesitancy (Chronic) Urinary retention (Chronic) Surgical History History of back surgery (Chronic ~2015) fusion 2016 History of colonoscopy (Chronic ~2014) History of left knee surgery (Chronic ~2001) History of right knee surgery (Chronic ~2003) History of shoulder surgery (Chronic ~2006) left 2006; right shoulder reversal 2010 History of tonsillectomy (Chronic) S/P epidural steroid injection (Chronic) LESI #3 L3-4 w/o sed 05/06/19, LESI #2 L3-4 w/o sed 02/18/19, LESI #1 L3-4 w/o sed 11/10/2018, TF CHELLE #2 Right L4-5 w/o sed 07/06/15, TF CHELLE #1 Right L4-5 w/o sed 06/15/15 S/P insertion of intrathecal pump (Acute) Replacement [employer] pump w/ sed 06/10/18, Replacement [employer] Pump Implant ([facility]) 10/11/2011 Family History Mother Arthritis Cancer Father Hypertension Diabetes Son Diabetes Social History (Updated 09/13/19 @ 19:31 by Amy Mills DO) marital status: legally occupational status: disabled physical activity: none smoking status: Former smoker quit date: 05/12/14 pack-years: 75 alcohol intake frequency: does not drink substance use type: marijuana MEDS/ALLERGIES Home Medications and Allergies Home Medications Medication Instructions Recorded Confirmed Type acetaminophen 500 mg tablet 1,500 mg PO TID PRN tab 07/26/19 11/22/19 History mecobalamin (vitamin B12) 1,000 1,000 mcg PO QDAY 09/13/19 11/23/19 History mcg chewable tablet tramadol 50 mg tablet 50 mg PO TID PRN 09/13/19 11/23/19 History clonazepam 2 mg tablet 2 mg PO TID 11/22/19 11/22/19 History cyanocobalamin (vitamin B-12) 1,000 mcg IM MONTHLY 11/22/19 11/22/19 History 1,000 mcg/mL injection solution diclofenac sodium 2 g TOPICAL DAILY 11/22/19 11/22/19 History docusate calcium 1 dose PO TID 11/22/19 11/22/19 History fexofenadine 180 mg tablet 180 mg PO DAILY 11/22/19 11/22/19 History fluticasone propionate 50 2 spray INTRANASAL QID 11/22/19 11/22/19 History mcg/actuation nasal spray,suspension furosemide 20 mg PO QAM 11/22/19 11/22/19 History gabapentin 600 mg PO TID 11/22/19 11/22/19 History guaifenesin [Mucinex] 1,200 mg PO BID 11/22/19 11/22/19 History hydrochlorothiazide 25 mg PO QAM 11/22/19 11/22/19 History ipratropium bromide 42 mcg (0.06 42 mcg INTRANASAL TID 11/22/19 11/23/19 History %) nasal spray levothyroxine 125 mcg PO QDAY 11/22/19 11/22/19 History methocarbamol [Robaxin-750] 750 mg PO QID 11/22/19 11/22/19 History multivitamin See Rx Instructions PO .COMPLEX 11/22/19 11/22/19 History omeprazole 20 mg capsule,delayed 20 mg PO BID 11/22/19 11/23/19 History release potassium chloride 20 mEq 20 meq PO DAILY 11/22/19 11/23/19 History tablet,extended release(part/cryst) simvastatin 40 mg tablet 40 mg PO HS 11/22/19 11/23/19 History tamsulosin 0.4 mg capsule 0.4 mg PO HS 11/22/19 11/23/19 History trazodone 50 mg PO QHS 11/22/19 11/22/19 History melatonin 10 mg PO HS PRN 11/23/19 11/23/19 History montelukast 10 mg PO QDAY 11/23/19 11/23/19 History oxycodone 10 mg PO Q6HP PRN 11/23/19 11/23/19 History polyethylene glycol 3350 [Miralax] 17 g PO BIDP PRN 11/23/19 11/23/19 History Allergies Allergy/AdvReac Type Severity Reaction Status Date / Time cephalexin [From Keflex] Allergy Severe Unknown Verified 09/13/19 12:50 Cyclobenzaprine Allergy Unknown Unknown Verified 09/13/19 12:50 [From Flexeril] fentanyl AdvReac Unknown nausea and Verified 11/22/19 11:54 vomiting EXAM Constitutional Vitals: Temp Pulse Resp BP Pulse Ox 98.0 F 61 13 107/62 94 11/22/19 11:54 11/22/19 17:57 11/22/19 17:57 11/22/19 17:31 11/22/19 17:57 Slight facial asymmetry Head normocephalic Oral cavity moist No ear nose discharge Eye movement symmetrical Neck supple no visible lymphadenopathy Regular rhythm Nonlabored breathing Nondistended nontender abdomen Pain pump Lower extremity no cyanosis clubbing or joint swelling Skin no suspicious lesion Psych anxious but alert cooperative Neuro NIH 2. Left upper extremity grade 3 wit wrist drop poor dorsiflexion. lower extremity grade 4 strength. Normal higher functions. GCS 14 DATA Data Completed and Pending Labs on day of discharge: Labs from last 24 hours 11/22/19 11/22/19 11/22/19 14:00 12:12 12:12 WBC RBC Hgb Hct POC Hct 35.0 L MCV MCH MCHC RDW Plt Count MPV Gran % Lymph % (Auto) [place] % (Auto) Eos % (Auto) Baso % (Auto) Gran # Lymph # (Auto) [place] # (Auto) Eos # (Auto) Baso # (Auto) POC PT POC INR APTT POC Sodium 139 Sodium 136 POC Potassium 3.8 Potassium 3.9 POC Chloride 102 Chloride 100 Carbon Dioxide 22 POC Total CO2 24 Anion Gap 14.0 POC BUN 38 H BUN 40 H Creatinine 1.2 POC Creatinine 1.0 GFR Calculation 62 Glucose 114 H POC Glucose 111 H Calcium 9.5 POC WB Ioniz Calcium 1.28 Total Bilirubin 0.3 AST 23 ALT < 5 Alkaline Phosphatase 83 Troponin T < 0.01 Total Protein 7.7 Albumin 4.0 Globulin 3.7 Albumin/Globulin Ratio 1.1 Urine Color Straw Urine Appearance Clear Urine pH 6.0 Ur Specific [place] 1.024 Urine Protein 30 A Urine Glucose (UA) Negative Urine Ketones Neg Urine Occult Blood >=1.0 A Urine Nitrate Neg Urine Bilirubin Neg Urine Urobilinogen Neg Ur Leukocyte Esterase Neg Urine RBC 15 H Urine WBC 0 Ur Squamous Epith Cells < 1 Urine Bacteria 0 Ur Culture Indicated? No 11/22/19 11/22/19 12:12 12:12 WBC 7.5 RBC 3.56 L Hgb 10.6 L Hct 33.8 L POC Hct MCV 94.9 MCH 29.8 MCHC 31.4 RDW 15.3 H Plt Count 277 MPV 9.1 Gran % 66.6 Lymph % (Auto) 21.3 [place] % (Auto) 10.1 Eos % (Auto) 1.5 Baso % (Auto) 0.5 Gran # 4.96 Lymph # (Auto) 1.59 [place] # (Auto) 0.75 Eos # (Auto) 0.11 Baso # (Auto) 0.04 POC PT 14.7 H POC INR 1.2 APTT 43 H POC Sodium Sodium POC Potassium Potassium POC Chloride Chloride Carbon Dioxide POC Total CO2 Anion Gap POC BUN BUN Creatinine POC Creatinine GFR Calculation Glucose POC Glucose Calcium POC WB Ioniz Calcium Total Bilirubin AST ALT Alkaline Phosphatase Troponin T Total Protein Albumin Globulin Albumin/Globulin Ratio Urine Color Urine Appearance Urine pH Ur Specific [place] Urine Protein Urine Glucose (UA) Urine Ketones Urine Occult Blood Urine Nitrate Urine Bilirubin Urine Urobilinogen Ur Leukocyte Esterase Urine RBC Urine WBC Ur Squamous Epith Cells Urine Bacteria Ur Culture Indicated? A/P Narrative A/P Narrative: * Acute onset left upper extremity weakness with wrist drop-rule out nerve impingement. On aspirin Plavix and statin as per neuro recommendations. MRI C-spine in a.m. Continue PT OT. * Weakness/deconditioning nutrition support * Anxiety disorder continue citalopram/trazodone * GERD continue PPI * Chronic pain on oxycodone/tramadol * BPH continue tamsulosin * Hypothyroidism continue thyroxine * Full code * Prophylaxis heparin to start in 24 hours Plan * Observation admit telemetry * MRI C-spine * PT OT nutrition support * Pre-existing medical condition management home meds Time Spent With Patient Time: Total time spent is greater than 50% in coordination of care (as documented) at patient's floor/unit and/or counseling patient: Total time spent with greater than 50% in coordination of care (as documented) at patient's floor/unit and/or counseling patient:: Greater than 35 minutes
[2019-11-22] MEDS ORDERED: ACETAMINOPHEN 325 MG TABLET PO PRN (20:16)
[2019-11-22] MEDS ORDERED: METOPROLOL TARTRATE 5 MG/5 ML VIAL IV PRN (20:16)
[2019-11-22] MEDS ORDERED: ONDANSETRON 4 MG/2 ML VIAL IV PRN (20:16)
[2019-11-22] MEDS ORDERED: POLYETHYLENE GLYCOL 3350 17 GM PACKET PO PRN (20:16)
[2019-11-22] MEDS ORDERED: BISACODYL 10 MG SUPP.RECT PR PRN (20:16)
[2019-11-22] MEDS ORDERED: ACETAMINOPHEN 650 MG/65 ML BOTTLE IV PRN (20:16)
[2019-11-22] MEDS ORDERED: MAGNESIUM SULFATE 2 GM/50 ML BAG IV PRN (20:16)
[2019-11-22] MEDS ORDERED: POTASSIUM CHLORIDE 20 MEQ PACKET PO PRN (20:16)
[2019-11-22] MEDS ORDERED: hydrALAZINE 20 MG/ML VIAL IV PRN (20:16)
[2019-11-22] MEDS ORDERED: MELATONIN 3 MG TABLET PO PRN (20:16)
[2019-11-22] MEDS ORDERED: ATORVASTATIN 20 MG TABLET PO SCH (21:00)
[2019-11-22] MEDS ORDERED: MELATONIN 3 MG TABLET PO ONE ×2 (22:05→22:28)
[2019-11-22] MEDS ORDERED: GABAPENTIN 300 MG CAPSULE PO ONE (22:08)
[2019-11-22] MEDS ORDERED: clonazePAM 1 MG TABLET PO ONE (22:09)
[2019-11-22] MEDS ORDERED: traZODone HCL 50 MG TABLET PO ONE (22:10)
[2019-11-22] MEDS ORDERED: oxyCODONE 10 MG TAB.ER.12H PO SCH (22:15)
[2019-11-22] MEDS ORDERED: clonazePAM 1 MG TABLET ONE (22:27)
[2019-11-22] MEDS ORDERED: traZODone HCL 50 MG TABLET ONE (22:28)
[2019-11-22] MEDS ORDERED: GABAPENTIN 300 MG CAPSULE ONE (22:28)
[2019-11-22] MEDS ORDERED: oxyCODONE 10 MG TAB.ER.12H PO ONE (22:28)
[2019-11-22] MEDS: SENNOSIDES/DOCUSATE SODIUM 1 TAB TABLET PO SCH (22:36)
[2019-11-22] MEDS: DOCUSATE SODIUM 100 MG CAPSULE PO SCH (22:36)
[2019-11-22] MEDS: CYANOCOBALAMIN (VITAMIN B-12) 500 MCG TABLET PO SCH (22:37)
[2019-11-22] MEDS: 0.9 % SODIUM CHLORIDE 10 ML SYRINGE IV SCH (22:39)
[2019-11-23] MEDS ORDERED: oxyCODONE 10 MG TAB.ER.12H PO SCH (05:30)
[2019-11-23] MEDS ORDERED: oxyCODONE 10 MG TAB.ER.12H PO ONE (05:38)
[2019-11-23] MEDS: 0.9 % SODIUM CHLORIDE 10 ML SYRINGE IV SCH ×3 (05:48→21:27)
[2019-11-23 07:11] LABS: Hematocrit 31.9 % (40.1-51.0); Hemoglobin 9.9 g/dL (13.7-17.5); Mean Cell Volume 96.4 fL (80.0-100.0); Platelet Count 265 K/mcL (140-440); RBC 3.31 M/mcL (4.63-6.08); Red Cell Distribution Width 15.5 % (11.5-14.5); WBC 5.6 K/mcL (4.50-11.00)
[2019-11-23 07:27] LABS: Bilirubin,Direct < 0.2 mg/dL (0.0-0.3); Chloride 103 mmol/L (96-108)
[2019-11-23 07:28] LABS: ALT/SGPT < 5 U/l (0-40); AST/SGOT 19 U/l (0-37); Albumin 3.5 gm/dL (3.2-5.2); Alkaline Phosphatase 68 U/L (39-117); Bilirubin,Total 0.4 mg/dL (0.0-1.0); Blood Urea Nitrogen 25 mg/dl (8-23); Calcium 9.4 mg/dl (8.6-10.4); Carbon Dioxide 22 mmol/L (22-30); Globulin 3.6 gm/dL (2.2-3.7); Glomerular Filtration Rate 92; Glucose 93 mg/dL (70-105); Lactate Dehydrogenase 204 U/L (94-250); Phosphorous 3.4 mg/dL (2.7-4.5); Triglycerides 129 mg/dl (<150)
[2019-11-23] MEDS ORDERED: ACETAMINOPHEN 500 MG TABLET PO PRN (08:07)
[2019-11-23] MEDS ORDERED: POLYETHYLENE GLYCOL 3350 17 GM PACKET PO PRN ×2 (08:07→08:30)
[2019-11-23 08:09] LABS: Eosinophils % (Manual) 4 % (0-7); Lymphocytes % 42 % (15-49); Monocytes % (Manual) 7 % (1-12); Platelet Estimate NORMAL (NORMAL); RBC Morphology NORMAL (NORMAL); Segmented Neutrophils % 47 % (38-78)
[2019-11-23] MEDS: CLOPIDOGREL 75 MG TABLET PO SCH (08:11)
[2019-11-23] MEDS: CYANOCOBALAMIN (VITAMIN B-12) 500 MCG TABLET PO SCH ×2 (08:11→21:27)
[2019-11-23] MEDS: HEPARIN 5,000 UNIT/ML VIAL SQ SCH ×2 (08:11→21:25)
[2019-11-23] MEDS: THIAMINE 100 MG TABLET PO SCH (08:11)
[2019-11-23] MEDS: DOCUSATE SODIUM 100 MG CAPSULE PO SCH ×2 (08:11→21:24)
[2019-11-23] MEDS: MULTIVIT,THER IRON,CA,FA & MIN 1 TABLET PO SCH (08:11)
[2019-11-23] MEDS: ASPIRIN 81 MG TAB.CHEW CHEWED SCH (08:11)
[2019-11-23] MEDS ORDERED: MULTIVITAMIN PO SCH (08:15)
[2019-11-23] MEDS ORDERED: CYANOCOBALAMIN 1,000 MCG/ML VIAL IM SCH (09:00)
[2019-11-23] MEDS ORDERED: DICLOFENAC SODIUM 2 GM TOPICAL SCH (09:00)
[2019-11-23] MEDS ORDERED: DOCUSATE CALCIUM PO SCH (09:00)
[2019-11-23] MEDS ORDERED: CYANOCOBALAMIN (VITAMIN B-12) 500 MCG TABLET PO SCH (09:00)
[2019-11-23] MEDS ORDERED: FUROSEMIDE 20 MG TABLET PO SCH (09:00)
[2019-11-23] MEDS ORDERED: CRANBERRY PO SCH (09:00)
[2019-11-23] MEDS ORDERED: TAMSULOSIN 0.4 MG CAPSULE PO SCH ×2 (09:00→21:00)
--- NOTE | 2019-11-23 09:44 | Internal Med Progress Note ---
SUBJECTIVE Subjective Patient information: Note initiated : 11/23/19 at 9:41 am Service Date, if different from initiated Date: [] Patient: Bj Nathan a 69 y/o M admitted on 11/22/19 for Left Sided Weakness. Chief Complaint: [] Mr. Nathan is a 69 year old M with a history of chronic pain on pain pump/multilevel spinal DJD with pain and history of fusion, anxiety, neuropathy who presents to the ER with acute onset left arm weakness that started early this morning. Patient lives alone and has been dealing with his chronic pain. He attempted a fentanyl patch yesterday. On Friday evening he fell down 6 steps on the stairs fortunately without significant injuries. However over the next 48 hours he started noticing weakness involving left upper extremity unable to grasp objects and noticed wrist dropping. He denied associated thunderclap headache, tearing neck pain, incontinence, loss of consciousness, vertigo, diplopia or swallowing difficulty. He however had progressive worsening of neck and right shoulder pain following fall. He was evaluated the pain clinic and was subsequently referred to the ER for evaluation of weakness involving his left upper extremities concerning for neurological changes. Initial work-up in the ER was consistent with possible acute CVA with NIH score of 2. Stroke neurologist consulted. Brain MRI/CT angiogram head neck unremarkable for acute process. Neurology recommended aspirin Plavix and statin and a C-spine MRI to rule out nerve impingement as a cause of left arm weakness. Hospitalist service was consulted At the time of evaluation patient is alert and oriented. He was able to answer most the question endorse history as above. He denies recent changes in medications, seizure episodes. Patient denies associated fever, diarrhea, dysuria, chest pain or shortness of breath 11/22-patient doing well. No overnight events. Persistent left wrist drop. Right shoulder pain. No telemetry events. MRI C-spine today. Ongoing physical therapy. Tolerating diet. On aspirin Plavix statin. Interval history: Narrative: Constitutional Vitals: Vital Signs Temp Pulse Resp BP Pulse Ox 98.3 F 59 L 14 136/80 97 11/23/19 08:01 11/23/19 08:01 11/23/19 08:01 11/23/19 08:01 11/23/19 08:01 Period Temp Pulse Resp BP Sys/[place] Pulse Ox Last 24 Hr 97.7 F-98.5 F 38-80 11-27 107-154/62-113 90-100 Intake and Output 11/22/19 11/23/19 11/23/19 21:59 05:59 13:59 Intake Total 425 425 480 Output Total 300 500 Balance 125 -75 480 Weight 60.509 kg Alert oriented Left wrist drop Nonlabored breathing No telemetry event Intake & Output: Intake & Output 11/22/19 11/23/19 11/23/19 21:59 05:59 13:59 Intake Total 425 425 480 Output Total 300 500 Balance 125 -75 480 Weight 60.509 kg Intake: Oral 425 425 480 Output: Void Amount 300 500 Other: Meal Breakfast Percent of Meal Consumed 100% Urine Appearance Clear Clear Urine Color Dark Yellow Dark Yellow # Bowel Movements 0 OBJ DATA Labs CBC & Chem 7: 11/23/19 04:36 11/23/19 04:36 Labs: Abnormal Lab Results 11/23/19 11/23/19 11/22/19 04:36 04:36 14:00 RBC 3.31 L Hgb 9.9 L Hct 31.9 L POC Hct RDW 15.5 H POC PT APTT POC BUN BUN 25 H Glucose POC Glucose Urine Protein 30 A Urine Occult Blood >=1.0 A Urine RBC 15 H 11/22/19 11/22/19 11/22/19 12:12 12:12 12:12 RBC 3.56 L Hgb 10.6 L Hct 33.8 L POC Hct 35.0 L RDW 15.3 H POC PT 14.7 H APTT 43 H POC BUN 38 H BUN 40 H Glucose 114 H POC Glucose 111 H Urine Protein Urine Occult Blood Urine RBC Meds: Medications Acetaminophen (Tylenol) 650 mg PO Q4-6HP PRN; Protocol PRN Reason: Per Pain Protocol/Fever > 101 Aspirin (Aspirin) 81 mg CHEWED DAILY [facility] Last Admin: 11/23/19 08:11 Dose: 81 mg Documented by: Atorvastatin Calcium (Lipitor) 40 mg PO HS [facility] Last Admin: 11/22/19 22:40 Dose: Not Given Documented by: Bisacodyl (Dulcolax) 10 mg TN Q2-3DAYS PRN PRN Reason: Constipation Clopidogrel Bisulfate (Plavix) 75 mg PO DAILY [facility] Last Admin: 11/23/19 08:11 Dose: 75 mg Documented by: Cyanocobalamin (Vitamin B-12) 1,000 mcg PO BID [facility] Stop: 11/27/19 09:01 Last Admin: 11/23/19 08:11 Dose: 1,000 mcg Documented by: Docusate Sodium (Colace) 100 mg PO BID [facility] Last Admin: 11/23/19 08:11 Dose: 100 mg Documented by: Fexofenadine HCl (Pretty) 180 mg PO DAILY [facility] Fluticasone Propionate (Flonase) 2 spray NS QID [facility] Furosemide (Lasix) 20 mg PO QAM [facility] Gabapentin (Neurontin) 600 mg PO TID [facility] Heparin Sodium (Porcine) (Heparin) 5,000 unit SQ Q12 [facility] Last Admin: 11/23/19 08:11 Dose: 5,000 unit Documented by: Hydralazine HCl (Apresoline) 10 mg IV Q4-6HP PRN PRN Reason: Hypertension Hydrochlorothiazide (Oretic) 25 mg PO QAM [facility] Acetaminophen (Ofirmev) 650 mg in 65 mls @ 130 mls/hr IV Q6HP PRN; Protocol PRN Reason: Per Pain Protocol/Fever > 101 Magnesium Sulfate (Magnesium Sulfate) 2 gm in 50 mls @ 50 mls/hr IV UD PRN PRN Reason: MG = or < 1.7 Ipratropium [place] (Atrovent 0.06% Nasal Srpay) spray OLEG TID [facility] Iron Carb/Multivit/[place]/Folic Acid (Multivitamin W/Minerals) 1 tab PO DAILY [facility] Last Admin: 11/23/19 08:11 Dose: 1 tab Documented by: Levothyroxine Sodium (Synthroid) 125 mcg PO ACB [facility] Melatonin (Melatonin 3mg Tablet) 9 mg PO HSP PRN PRN Reason: Insomnia Methocarbamol (Robaxin) 750 mg PO QID [facility] Metoprolol Tartrate (Lopressor) 5 mg IV Q5M PRN PRN Reason: Heart Rate > 140 bpm Montelukast Sodium (Singular) 10 mg PO QDAY [facility] Non-Formulary Medication (Clonazepam) 2 mg PO TID [facility] Non-Formulary Medication (Diclofenac Sodium) 2 g TOPICAL DAILY [facility] Non-Formulary Medication (Guaifenesin [Mucinex]) 1,200 mg PO BID ANNA Omeprazole (Prilosec) 20 mg PO BIDAC [facility] Ondansetron HCl (Zofran Odt) 4 mg SL Q4-6HP PRN; Protocol PRN Reason: Nausea And Vomiting Ondansetron HCl (Zofran) 4 mg IV Q4-6HP PRN; Protocol PRN Reason: Nausea And Vomiting Oxycodone HCl (Oxycontin) 10 mg PO Q6HP PRN; Protocol PRN Reason: Pain Polyethylene Glycol (Miralax) 17 gm PO BIDP PRN PRN Reason: Constipation Potassium Chloride (Klor-Con) 40 meq PO DAILYP PRN PRN Reason: K+ < 3.5 Potassium Chloride (Kdur) 20 meq PO DAILY [facility] Senna/Docusate Sodium (Senna Plus Tablet) 1 tab PO HS [facility] Last Admin: 11/22/19 22:36 Dose: 1 tab Documented by: Simvastatin (Zocor) 40 mg PO HS [facility] Sodium Chloride (Saline Flush) 10 ml IV Q8 [facility] Last Admin: 11/23/19 05:48 Dose: 10 ml Documented by: Tamsulosin HCl (Flomax) 0.4 mg PO HS [facility] Thiamine HCl (Vitamin B1) 100 mg PO DAILY [facility] Last Admin: 11/23/19 08:11 Dose: 100 mg Documented by: Tramadol HCl (Ultram) 50 mg PO TIDP PRN PRN Reason: Pain Trazodone HCl (Desyrel) 50 mg PO QHS [facility] A/P Narrative A/P Narrative: * Acute onset left upper extremity weakness with wrist drop-rule brachial plexus injury/nerve impingement. On aspirin Plavix and statin as per neuro recommendations. MRI C-spine pending. Continue PT OT. * Weakness/deconditioning continue therapy/nutrition support * Anxiety disorder continue citalopram/trazodone * GERD continue PPI * Chronic pain on oxycodone/tramadol * BPH continue tamsulosin * Hypothyroidism continue thyroxine * Full code * Prophylaxis heparin to start in 24 hours Plan * Aspirin statin Plavix * MRI C-spine * PT OT nutrition support * Pre-existing medical condition management home meds Time Spent With Patient Time: Total time spent is greater than 50% in coordination of care (as documented) at patient's floor/unit and/or counseling patient: QUALITY Stroke Symptom Onset Unknown: No VTE Deep Vein Thrombosis/Pulmonary Embolism Present on Admission: No
--- NOTE | 2019-11-23 10:26 | Magnetic Resonance Report ---
INDICATION: left wrist drop COMPARISON: None TECHNIQUE: Sagittal T2 FRFSE, T1 FLAIR, STIR, T2 FRFSE. Axial 2D MERGE, T2 FRFSE. FINDINGS: Suboptimal examination as this patient moved throughout the procedure. Multilevel degenerative disc disease. C2-3:Negative. No significant degenerative disc disease. No soft disc herniation. No spinal canal stenosis C3-4:Negative. No significant degenerative disc disease. No soft disc herniation. No spinal canal stenosis C4-5:Degenerative disc disease with disc narrowing. Broad-based disc osteophyte complex. No acute soft disc herniation. There is spinal canal stenosis with an AP spinal canal diameter of approximately 8 mm. There is effacement of the CSF space surrounding the spinal cord. There is bilateral C5 foraminal stenosis. C5-6:Degenerative disc disease. Broad-based disc osteophyte complex. AP diameter of the spinal canal is narrowed to 8 mm. There is bilateral C6 foraminal stenosis C6-7:Severe degenerative disc disease. Broad-based disc osteophyte complex. Spinal canal is narrowed to 8 mm. There is bilateral foraminal stenosis. C7-T1:Mild degenerative disc disease. No disc herniation. The spinal canal or foraminal stenosis Cervical vertebral bodies and facets:No bone marrow edema. No pathologic marrow replacement. No evidence for metastatic disease. Normal cervical lordosis. Spinal cord:Possible subtle signal abnormality within the spinal cord at the C4-5 level. This appears to be right-sided. This is identified only on sagittal T2-weighted images and is not confirmed on axial images. Spinal cord contusion or myelomalacia is possible. Paraspinal soft tissues:No paraspinal soft tissue mass. The vertebral soft tissue swelling IMPRESSION: 1. Multilevel degenerative disc disease 2. Spinal canal stenosis and foraminal stenoses at C4-5, C5-6, C6-7 3. Possible signal abnormality within the spinal cord at the C4-5 level may represent a spinal cord contusion or myelomalacia. This is not considered a definite finding Interpreted and Authenticated by: Garry Caballero 11/23/19
[2019-11-23] MEDS: FLUTICASONE PROPIONATE SPRAY.NAS NS SCH ×2 (10:45→11:52)
[2019-11-23] MEDS: FEXOFENADINE 180 MG TABLET PO SCH (11:47)
[2019-11-23] MEDS: GABAPENTIN 300 MG CAPSULE PO SCH ×3 (11:48→21:26)
[2019-11-23] MEDS: FUROSEMIDE 20 MG TABLET PO SCH (11:48)
[2019-11-23] MEDS: guaiFENesin 600 MG TAB.SR.12H PO SCH ×2 (11:49→21:26)
[2019-11-23] MEDS: oxyCODONE 10 MG TAB.ER.12H PO PRN ×3 (11:49→18:00)
[2019-11-23] MEDS: clonazePAM 1 MG TABLET PO SCH ×3 (11:49→21:26)
[2019-11-23] MEDS: MONTELUKAST 10 MG TABLET PO SCH (11:49)
[2019-11-23] MEDS: OMEPRAZOLE 20 MG CAPSULE PO SCH ×2 (11:49→17:11)
[2019-11-23] MEDS: ONDANSETRON 4 MG ODT TABLET SL PRN (11:49)
[2019-11-23] MEDS: HYDROCHLOROTHIAZIDE 25 MG TABLET PO SCH (11:50)
[2019-11-23] MEDS: IPRATROPIUM 0.06% NASAL SPRAY BOTTLE 30ML NAS SCH ×3 (11:50→21:24)
[2019-11-23] MEDS: LEVOTHYROXINE 125 MCG TABLET PO SCH (11:50)
[2019-11-23] MEDS: METHOCARBAMOL 500 MG TABLET PO SCH ×3 (11:50→21:26)
[2019-11-23] MEDS ORDERED: traZODone HCL 50 MG TABLET PO SCH (21:00)
[2019-11-23] MEDS: traZODone HCL 50 MG TABLET PO SCH (21:24)
[2019-11-23] MEDS: TAMSULOSIN 0.4 MG CAPSULE PO SCH (21:25)
[2019-11-23] MEDS: SENNOSIDES/DOCUSATE SODIUM 1 TAB TABLET PO SCH (21:26)
[2019-11-23] MEDS: SIMVASTATIN 40 MG TABLET PO SCH (21:27)
[2019-11-23] MEDS: MELATONIN 3 MG TABLET PO PRN (21:27)
[2019-11-24] MEDS: oxyCODONE 10 MG TAB.ER.12H PO PRN ×4 (00:43→18:07)
[2019-11-24] MEDS: 0.9 % SODIUM CHLORIDE 10 ML SYRINGE IV SCH ×3 (05:40→22:09)
[2019-11-24 06:57] LABS: Hematocrit 32.2 % (40.1-51.0); Hemoglobin 10.2 g/dL (13.7-17.5); Mean Cell Volume 94.4 fL (80.0-100.0); Mean Corpuscular HGB Conc 31.7 g/dL (31.0-36.0); Mean Platelet Volume 8.9 fL (7.4-10.4); Platelet Count 282 K/mcL (140-440); RBC 3.41 M/mcL (4.63-6.08); Red Cell Distribution Width 15.2 % (11.5-14.5); WBC 6.7 K/mcL (4.50-11.00)
[2019-11-24 07:59] LABS: Bilirubin,Direct < 0.2 mg/dL (0.0-0.3)
[2019-11-24 08:00] LABS: ALT/SGPT < 5 U/l (0-40); AST/SGOT 19 U/l (0-37); Albumin 3.4 gm/dL (3.2-5.2); Alkaline Phosphatase 72 U/L (39-117); Bilirubin,Total 0.2 mg/dL (0.0-1.0); Blood Urea Nitrogen 27 mg/dl (8-23); Calcium 9.1 mg/dl (8.6-10.4); Carbon Dioxide 23 mmol/L (22-30); Chloride 94 mmol/L (96-108); Globulin 3.5 gm/dL (2.2-3.7); Glomerular Filtration Rate 69; Glucose 96 mg/dL (70-105); Lactate Dehydrogenase 179 U/L (94-250); Phosphorous 4.4 mg/dL (2.7-4.5); Triglycerides 84 mg/dl (<150); Uric Acid 7.2 mg/dL (2.5-8.0)
[2019-11-24 08:55] LABS: Eosinophils % (Manual) 3 % (0-7); Lymphocytes % 41 % (15-49); Monocytes % (Manual) 7 % (1-12); Platelet Estimate NORMAL (NORMAL); RBC Morphology NORMAL (NORMAL); Segmented Neutrophils % 49 % (38-78)
[2019-11-24] MEDS: LEVOTHYROXINE 125 MCG TABLET PO SCH (09:14)
[2019-11-24] MEDS: DOCUSATE SODIUM 100 MG CAPSULE PO SCH ×2 (09:14→22:09)
[2019-11-24] MEDS: HYDROCHLOROTHIAZIDE 25 MG TABLET PO SCH (09:14)
[2019-11-24] MEDS: POTASSIUM CHLORIDE 10 MEQ TABLET PO SCH (09:14)
[2019-11-24] MEDS: HEPARIN 5,000 UNIT/ML VIAL SQ SCH ×2 (09:14→22:09)
[2019-11-24] MEDS: FUROSEMIDE 20 MG TABLET PO SCH (09:15)
[2019-11-24] MEDS: ASPIRIN 81 MG TAB.CHEW CHEWED SCH (09:15)
[2019-11-24] MEDS: traMADol 50 MG TABLET PO PRN ×2 (09:15→22:08)
[2019-11-24] MEDS: guaiFENesin 600 MG TAB.SR.12H PO SCH ×2 (09:15→22:08)
[2019-11-24] MEDS: MULTIVIT,THER IRON,CA,FA & MIN 1 TABLET PO SCH (09:15)
[2019-11-24] MEDS: CLOPIDOGREL 75 MG TABLET PO SCH (09:15)
[2019-11-24] MEDS: CYANOCOBALAMIN (VITAMIN B-12) 500 MCG TABLET PO SCH ×2 (09:15→22:08)
[2019-11-24] MEDS: ONDANSETRON 4 MG ODT TABLET SL PRN ×2 (09:16→16:40)
[2019-11-24] MEDS: THIAMINE 100 MG TABLET PO SCH (09:16)
[2019-11-24] MEDS: IPRATROPIUM 0.06% NASAL SPRAY BOTTLE 30ML NAS SCH ×3 (09:17→21:31)
[2019-11-24] MEDS: OMEPRAZOLE 20 MG CAPSULE PO SCH ×2 (09:17→16:40)
[2019-11-24] MEDS: GABAPENTIN 300 MG CAPSULE PO SCH ×3 (09:17→22:09)
[2019-11-24] MEDS: MONTELUKAST 10 MG TABLET PO SCH (09:17)
[2019-11-24] MEDS: FEXOFENADINE 180 MG TABLET PO SCH (09:24)
[2019-11-24] MEDS: METHOCARBAMOL 500 MG TABLET PO SCH ×4 (09:24→22:07)
[2019-11-24] MEDS: clonazePAM 1 MG TABLET PO SCH ×3 (09:24→22:08)
[2019-11-24] MEDS ORDERED: CYANOCOBALAMIN 1,000 MCG/ML VIAL IM ONE ×2 (09:42→10:00)
[2019-11-24] MEDS ORDERED: methylPREDNISolone SOD SUCC 125 MG/2 ML VIAL IV ONE (09:42)
[2019-11-24] MEDS ORDERED: NON FORMULARY MEDICATION 1 DOSE MISCELL (Oxycodone 10 MG) PO PRN (09:48)
--- NOTE | 2019-11-24 09:48 | Internal Med Progress Note ---
SUBJECTIVE Subjective Patient information: Note initiated : 11/24/19 at 9:44 am Service Date, if different from initiated Date: [] Patient: Bj Nathan a 69 y/o M admitted on 11/22/19 for Left Sided Weakness. Mr. Nathan is a 69 year old M with a history of chronic pain on pain pump/multilevel spinal DJD with pain and history of fusion, anxiety, neuropathy who presents to the ER with acute onset left arm weakness that started early this morning. Patient lives alone and has been dealing with his chronic pain. He attempted a fentanyl patch yesterday. On Friday evening he fell down 6 steps on the stairs fortunately without significant injuries. However over the next 48 hours he started noticing weakness involving left upper extremity unable to grasp objects and noticed wrist dropping. He denied associated thunderclap headache, tearing neck pain, incontinence, loss of consciousness, vertigo, diplopia or swallowing difficulty. He however had progressive worsening of neck and right shoulder pain following fall. He was evaluated the pain clinic and was subsequently referred to the ER for evaluation of weakness involving his left upper extremities concerning for neurological changes. Initial work-up in the ER was consistent with possible acute CVA with NIH score of 2. Stroke neurologist consulted. Brain MRI/CT angiogram head neck unremarkable for acute process. Neurology recommended aspirin Plavix and statin and a C-spine MRI to rule out nerve impingement as a cause of left arm weakness. Hospitalist service was consulted At the time of evaluation patient is alert and oriented. He was able to answer most the question endorse history as above. He denies recent changes in medications, seizure episodes. Patient denies associated fever, diarrhea, dysuria, chest pain or shortness of breath 11/22-patient doing well. No overnight events. Persistent left wrist drop. Right shoulder pain. No telemetry events. MRI C-spine today. Ongoing physical therapy. Tolerating diet. On aspirin Plavix statin. 11/23-persistent wrist drop but improved since previous day. MRI shows multilevel spinal stenosis but no acute process. Start high-dose steroids/B12. Check vasculitis screen. Remains afebrile with normal white count, sodium 132, creatinine 1.1 Interval history: Narrative: Constitutional Vitals: Vital Signs Temp Pulse Resp BP Pulse Ox 99.4 F H 66 14 126/92 99 11/24/19 08:01 11/24/19 01:08 11/24/19 08:01 11/24/19 08:01 11/24/19 08:01 Period Temp Pulse Resp BP Sys/[place] Pulse Ox Last 24 Hr 97.5 F-99.4 F 66-73 11-24 101-142/63-92 92-100 Intake and Output 11/23/19 11/24/19 11/24/19 21:59 05:59 13:59 Intake Total 400 425 Output Total 1000 600 325 Balance -600 -175 -325 Weight 61.598 kg Alert and oriented No anxiety Persistent left wrist drop Nonlabored breathing Intake & Output: Intake & Output 11/23/19 11/24/19 11/24/19 21:59 05:59 13:59 Intake Total 400 425 Output Total 1000 600 325 Balance -600 -175 -325 Weight 61.598 kg Intake: Oral 400 425 Output: Void Amount 1000 600 325 Other: Meal Dinner Percent of Meal Consumed 100% Feeding Ability Independent Urine Appearance Clear Clear Clear Urine Color Straw Straw Bright Yellow Urine Odor Normal Normal Stool Size Large Stool Color Brown Stool Consistency Loose # Bowel Movements 0 OBJ DATA Labs CBC & Chem 7: 11/24/19 05:02 11/24/19 05:02 Labs: Abnormal Lab Results 11/24/19 11/24/19 11/23/19 05:02 05:02 04:36 RBC 3.41 L Hgb 10.2 L Hct 32.2 L POC Hct RDW 15.2 H POC PT APTT Sodium 132 L Chloride 94 L POC BUN BUN 27 H 25 H Glucose POC Glucose Urine Protein Urine Occult Blood Urine RBC 11/23/19 11/22/19 11/22/19 04:36 14:00 12:12 RBC 3.31 L Hgb 9.9 L Hct 31.9 L POC Hct 35.0 L RDW 15.5 H POC PT APTT Sodium Chloride POC BUN 38 H BUN 40 H Glucose 114 H POC Glucose 111 H Urine Protein 30 A Urine Occult Blood >=1.0 A Urine RBC 15 H 11/22/19 11/22/19 12:12 12:12 RBC 3.56 L Hgb 10.6 L Hct 33.8 L POC Hct RDW 15.3 H POC PT 14.7 H APTT 43 H Sodium Chloride POC BUN BUN Glucose POC Glucose Urine Protein Urine Occult Blood Urine RBC Meds: Medications Acetaminophen (Tylenol) 650 mg PO Q4-6HP PRN; Protocol PRN Reason: Per Pain Protocol/Fever > 101 Aspirin (Aspirin) 81 mg CHEWED DAILY [facility] Last Admin: 11/24/19 09:15 Dose: 81 mg Documented by: Bisacodyl (Dulcolax) 10 mg [place] Q2-3DAYS PRN PRN Reason: Constipation Clonazepam (Klonopin) 2 mg PO TID [facility] Last Admin: 11/24/19 09:24 Dose: 2 mg Documented by: Clopidogrel Bisulfate (Plavix) 75 mg PO DAILY [facility] Last Admin: 11/24/19 09:15 Dose: 75 mg Documented by: Cyanocobalamin (Vitamin B-12) 1,000 mcg PO BID [facility] Stop: 11/27/19 09:01 Last Admin: 11/24/19 09:15 Dose: 1,000 mcg Documented by: Docusate Sodium (Colace) 100 mg PO BID [facility] Last Admin: 11/24/19 09:14 Dose: 100 mg Documented by: Fexofenadine HCl (Pretty) 180 mg PO DAILY [facility] Last Admin: 11/24/19 09:24 Dose: 180 mg Documented by: Furosemide (Lasix) 40 mg PO QAM [facility] Last Admin: 11/24/19 09:15 Dose: 40 mg Documented by: Gabapentin (Neurontin) 600 mg PO TID [facility] Last Admin: 11/24/19 09:17 Dose: 600 mg Documented by: Guaifenesin (Mucinex) 1,200 mg PO BID [facility] Last Admin: 11/24/19 09:15 Dose: 1,200 mg Documented by: Heparin Sodium (Porcine) (Heparin) 5,000 unit SQ Q12 [facility] Last Admin: 11/24/19 09:14 Dose: 5,000 unit Documented by: Hydralazine HCl (Apresoline) 10 mg IV Q4-6HP PRN PRN Reason: Hypertension Hydrochlorothiazide (Oretic) 25 mg PO QAM [facility] Last Admin: 11/24/19 09:14 Dose: 25 mg Documented by: Acetaminophen (Ofirmev) 650 mg in 65 mls @ 130 mls/hr IV Q6HP PRN; Protocol PRN Reason: Per Pain Protocol/Fever > 101 Magnesium Sulfate (Magnesium Sulfate) 2 gm in 50 mls @ 50 mls/hr IV UD PRN PRN Reason: MG = or < 1.7 Ipratropium [place] (Atrovent 0.06% Nasal Srpay) 2 spray OLEG TID [facility] Last Admin: 11/24/19 09:17 Dose: Not Given Documented by: Iron Carb/Multivit/Dinker/Folic Acid (Multivitamin W/Minerals) 1 tab PO DAILY [facility] Last Admin: 11/24/19 09:15 Dose: 1 tab Documented by: Levothyroxine Sodium (Synthroid) 125 mcg PO ACB [facility] Last Admin: 11/24/19 09:14 Dose: 125 mcg Documented by: Melatonin (Melatonin 3mg Tablet) 9 mg PO HSP PRN PRN Reason: Insomnia Last Admin: 11/23/19 21:27 Dose: 9 mg Documented by: Methocarbamol (Robaxin) 500 mg PO QID [facility] Last Admin: 11/24/19 09:24 Dose: 500 mg Documented by: Metoprolol Tartrate (Lopressor) 5 mg IV Q5M PRN PRN Reason: Heart Rate > 140 bpm Montelukast Sodium (Singular) 10 mg PO QDAY [facility] Last Admin: 11/24/19 09:17 Dose: 10 mg Documented by: Omeprazole (Prilosec) 20 mg PO BIDAC [facility] Last Admin: 11/24/19 09:17 Dose: 20 mg Documented by: Ondansetron HCl (Zofran Odt) 4 mg SL Q4-6HP PRN; Protocol PRN Reason: Nausea And Vomiting Last Admin: 11/24/19 09:16 Dose: 4 mg Documented by: Ondansetron HCl (Zofran) 4 mg IV Q4-6HP PRN; Protocol PRN Reason: Nausea And Vomiting Oxycodone HCl (Oxycontin) 10 mg PO Q6HP PRN; Protocol PRN Reason: Pain Last Admin: 11/24/19 05:40 Dose: 10 mg Documented by: Polyethylene Glycol (Miralax) 17 gm PO BIDP PRN PRN Reason: Constipation Last Admin: 11/23/19 11:47 Dose: 17 gm Documented by: Potassium Chloride (Klor-Con) 40 meq PO DAILYP PRN PRN Reason: K+ < 3.5 Potassium Chloride (Kdur) 30 meq PO QAMCC [facility] Last Admin: 11/24/19 09:14 Dose: 30 meq Documented by: Senna/Docusate Sodium (Senna Plus Tablet) 1 tab PO [facility] Last Admin: 11/23/19 21:26 Dose: Not Given Documented by: Simvastatin (Zocor) 40 mg PO [facility] Last Admin: 11/23/19 21:27 Dose: 40 mg Documented by: Sodium Chloride (Saline Flush) 10 ml IV Q8 [facility] Last Admin: 11/24/19 05:40 Dose: 10 ml Documented by: Tamsulosin HCl (Flomax) 0.8 mg PO [facility] Last Admin: 11/23/19 21:25 Dose: 0.8 mg Documented by: Thiamine HCl (Vitamin B1) 100 mg PO DAILY [facility] Last Admin: 11/24/19 09:16 Dose: 100 mg Documented by: Tramadol HCl (Ultram) 50 mg PO TIDP PRN PRN Reason: Pain Last Admin: 11/24/19 09:15 Dose: 50 mg Documented by: Trazodone HCl (Desyrel) 50 - 100 mg PO [facility] Last Admin: 11/23/19 21:24 Dose: 50 mg Documented by: A/P Narrative A/P Narrative: * Left wrist drop -possible cervical radiculopathy/brachial plexus injury from recent fall. Continue steroids/B12. Check vasculitis screen. No evidence of CVA on brain MRI. However on aspirin Plavix and statin as per neuro recommendations. Continue PT OT. * Weakness/deconditioning continue therapy/nutrition support * Anxiety disorder continue citalopram/trazodone * GERD continue PPI * Chronic pain on oxycodone/tramadol * BPH continue tamsulosin * Hypothyroidism continue thyroxine * Full code * Prophylaxis heparin subcu Plan * Vasculitis panel * Steroids/B12 * Aspirin statin Plavix * PT OT nutrition support * Pre-existing medical condition management home meds Time Spent With Patient Time: Total time spent is greater than 50% in coordination of care (as documented) at patient's floor/unit and/or counseling patient: 35 minutes QUALITY Stroke Symptom Onset Unknown: No VTE Deep Vein Thrombosis/Pulmonary Embolism Present on Admission: No
[2019-11-24] MEDS ORDERED: METHOCARBAMOL 500 MG TABLET PO SCH (13:00)
[2019-11-24 13:55] LABS: Rheumatoid Factor 10 IU/ml (0-14)
[2019-11-24] MEDS: TAMSULOSIN 0.4 MG CAPSULE PO SCH (22:08)
[2019-11-24] MEDS: traZODone HCL 50 MG TABLET PO SCH (22:08)
[2019-11-24] MEDS: MELATONIN 3 MG TABLET PO PRN (22:09)
[2019-11-24] MEDS: SENNOSIDES/DOCUSATE SODIUM 1 TAB TABLET PO SCH (22:09)
[2019-11-24] MEDS: SIMVASTATIN 40 MG TABLET PO SCH (22:09)
[2019-11-25] MEDS: oxyCODONE 10 MG TAB.ER.12H PO PRN ×4 (00:07→12:05)
[2019-11-25] MEDS: 0.9 % SODIUM CHLORIDE 10 ML SYRINGE IV SCH (05:26)
[2019-11-25 06:31] LABS: Hemoglobin 10.2 g/dL (13.7-17.5); Mean Cell Volume 94.1 fL (80.0-100.0); Mean Corpuscular HGB Conc 31.9 g/dL (31.0-36.0); Platelet Count 288 K/mcL (140-440); Red Cell Distribution Width 14.8 % (11.5-14.5); WBC 7.3 K/mcL (4.50-11.00)
[2019-11-25 07:02] LABS: Bilirubin,Direct < 0.2 mg/dL (0.0-0.3); Chloride 96 mmol/L (96-108)
[2019-11-25 07:27] LABS: ALT/SGPT < 5 U/l (0-40); AST/SGOT 15 U/l (0-37); Albumin 3.6 gm/dL (3.2-5.2); Alkaline Phosphatase 71 U/L (39-117); Bilirubin,Total 0.2 mg/dL (0.0-1.0); Blood Urea Nitrogen 29 mg/dl (8-23); Carbon Dioxide 25 mmol/L (22-30); Globulin 3.6 gm/dL (2.2-3.7); Glomerular Filtration Rate 69; Glucose 104 mg/dL (70-105); Lactate Dehydrogenase 168 U/L (94-250); Phosphorous 4.1 mg/dL (2.7-4.5); Triglycerides 84 mg/dl (<150); Uric Acid 6.7 mg/dL (2.5-8.0)
[2019-11-25] MEDS: POTASSIUM CHLORIDE 10 MEQ TABLET PO SCH (08:00)
[2019-11-25] MEDS: GABAPENTIN 300 MG CAPSULE PO SCH (08:00)
[2019-11-25] MEDS: MULTIVIT,THER IRON,CA,FA & MIN 1 TABLET PO SCH (08:00)
[2019-11-25] MEDS: HEPARIN 5,000 UNIT/ML VIAL SQ SCH (08:00)
[2019-11-25] MEDS: FUROSEMIDE 20 MG TABLET PO SCH (08:00)
[2019-11-25] MEDS: MONTELUKAST 10 MG TABLET PO SCH (08:00)
[2019-11-25] MEDS: CLOPIDOGREL 75 MG TABLET PO SCH (08:00)
[2019-11-25] MEDS: THIAMINE 100 MG TABLET PO SCH (08:00)
[2019-11-25] MEDS: OMEPRAZOLE 20 MG CAPSULE PO SCH (08:00)
[2019-11-25] MEDS: IPRATROPIUM 0.06% NASAL SPRAY BOTTLE 30ML NAS SCH (08:01)
[2019-11-25] MEDS: guaiFENesin 600 MG TAB.SR.12H PO SCH (08:01)
[2019-11-25] MEDS: ASPIRIN 81 MG TAB.CHEW CHEWED SCH (08:01)
[2019-11-25] MEDS: HYDROCHLOROTHIAZIDE 25 MG TABLET PO SCH (08:01)
[2019-11-25] MEDS: DOCUSATE SODIUM 100 MG CAPSULE PO SCH (08:01)
[2019-11-25] MEDS: CYANOCOBALAMIN (VITAMIN B-12) 500 MCG TABLET PO SCH (08:01)
[2019-11-25] MEDS: ONDANSETRON 4 MG ODT TABLET SL PRN ×2 (08:01→12:05)
[2019-11-25 08:02] LABS: Anisocytosis FEW (NONE SEEN); Band Neutrophils % 1 % (0-10); Eosinophils % (Manual) 1 % (0-7); Lymphocytes % 46 % (15-49); Monocytes % (Manual) 5 % (1-12); Platelet Estimate NORMAL (NORMAL); RBC Morphology ABNORM (NORMAL); Segmented Neutrophils % 47 % (38-78)
[2019-11-25] MEDS: clonazePAM 1 MG TABLET PO SCH (08:11)
[2019-11-25] MEDS: METHOCARBAMOL 500 MG TABLET PO SCH ×2 (08:11→12:05)
[2019-11-25] MEDS: FEXOFENADINE 180 MG TABLET PO SCH (08:12)
[2019-11-25] MEDS: LEVOTHYROXINE 125 MCG TABLET PO SCH (08:12)
[2019-11-25] MEDS ORDERED: CITALOPRAM 20 MG TABLET PO SCH (09:00)
[2019-11-25] MEDS ORDERED: buPROPion 150 MG TAB.XL.24H PO SCH (09:00)
--- NOTE | 2019-11-25 10:01 | Discharge Summary ---
Discharge Provider Provider Patient information: Note initiated : 11/25/19 at 9:57 am Service Date, if different from initiated Date: [] Patient: Bj Nathan 69 y/o M admitted on 11/22/19 for Left Sided Weakness. Chief Complaint: [] Date of admission: 11/22/19 20:01 Discharge date: 11/25/19 Primary care physician: Jocy Bonilla Consults: 11/22/19 19:02 Consult to Physician [CONS] Stat Comment: Consulting Provider: Clay Maloney Reason For Exam: Physician to Consult Discharge Meds Discharge Medications Home Medications acetaminophen 500 mg tablet 1,000 mg PO TIDP PRN tab 07/26/19 [History Confir med 11/23/19 Last Taken 11/22/19 06:00] mecobalamin (vitamin B12) 1,000 mcg chewable tablet 1,000 mcg PO QDAY 09/13/19 [History Confirmed 11/23/19 Last Taken 10/10/19 06:00] tramadol 50 mg tablet 50 mg PO TID PRN 09/13/19 [History Confirmed 11/23/19 Last Taken 11/22/19 06:00] Mucinex 1,200 mg PO TID 11/22/19 [History Confirmed 11/23/19 Last Taken 11/19/19 21:00] clonazepam 2 mg tablet 2 mg PO TID 11/22/19 [History Confirmed 11/23/19 Last Taken 11/22/19 06:00] cyanocobalamin (vitamin B-12) 1,000 mcg/mL injection solution 1,000 mcg IM MONTHLY 11/22/19 [History Confirmed 11/23/19 Last Taken 11/16/19] fexofenadine 180 mg tablet 180 - 360 mg PO DAILY 11/22/19 [History Confirmed 11/23/19 Last Taken 11/21/19 06:00] furosemide 40 mg PO QAM 11/22/19 [History Confirmed 11/23/19 Last Taken 11/18/19 06:00] gabapentin 600 mg PO TID 11/22/19 [History Confirmed 11/23/19 Last Taken 11/22/19 06:00] hydrochlorothiazide 25 mg PO QAM 11/22/19 [History Confirmed 11/23/19 Last Taken 11/22/19 06:00] levothyroxine 125 mcg PO QDAY 11/22/19 [History Confirmed 11/23/19 Last Taken 11/22/19 06:00] omeprazole 20 mg capsule,delayed release 20 mg PO DAILY 11/22/19 [History Confirmed 11/23/19 Last Taken 11/22/19 06:00] potassium chloride 20 mEq tablet,extended release(part/cryst) 30 meq PO DAILY 11/22/19 [History Confirmed 11/23/19 Last Taken 11/22/19 06:00] simvastatin 40 mg tablet 40 mg PO HS 11/22/19 [History Confirmed 11/23/19 Last Taken 11/21/19 21:00] tamsulosin 0.4 mg capsule 0.8 mg PO HS 11/22/19 [History Confirmed 11/23/19 Last Taken 11/21/19 21:00] trazodone 50 - 100 mg PO QHS 11/22/19 [History Confirmed 11/23/19 Last Taken 11/21/19 21:00] bupropion HCl [Wellbutrin XL] 300 mg PO QAM 11/23/19 [History Confirmed 11/23/19 Last Taken 11/20/19] citalopram 20 mg PO QDAY 11/23/19 [History Confirmed 11/23/19 Last Taken 11/20/19] docusate sodium 500 mg PO BID 11/23/19 [History Confirmed 11/23/19 Last Taken 11/20/19] ipratropium bromide 2 spray INTRANASAL TID 11/23/19 [History Confirmed 11/23/19 Last Taken 11/16/19] melatonin 10 mg PO HS PRN 11/23/19 [History Confirmed 11/23/19 Last Taken 11/21/19 21:00] methocarbamol 500 mg PO QID 11/23/19 [History Confirmed 11/23/19 Last Taken 11/21/19] montelukast 10 mg PO QDAY 11/23/19 [History Confirmed 11/23/19 Last Taken 11/18/19 06:00] oxycodone 10 mg PO Q6H PRN 11/23/19 [History Confirmed 11/23/19 Last Taken 11/22/19] polyethylene glycol 3350 [Miralax] 17 g PO BIDP PRN 11/23/19 [History Confirmed 11/23/19 Last Taken 11/18/19 06:00] aspirin 325 mg CHEWED DAILY #30 tab 11/25/19 [Rx Last Taken Unknown] COURSE Hospital Course Hospital Course: Discharge diagnosis * Left wrist drop -possible cervical radiculopathy versus mononeuritis/versus brachial plexus injury from recent fall. No significant response to steroids/B12. Negative rheumatoid factor. Inflammatory markers elevated. No evidence of CVA on brain MRI. Continue aspirin/Plavix/statin per neuro recommendations. Recommend outpatient neurology follow-up * Weakness/deconditioning underwent physical therapy * Anxiety disorder remained stable on citalopram/trazodone * GERD continue PPI * Chronic pain follows up with pain clinic as outpatient. * BPH continue tamsulosin * Hypothyroidism continue thyroxine Brief hospital course Mr. Nathan is a 69 year old M with a history of chronic pain on pain pump/multilevel spinal DJD with pain and history of fusion, anxiety, neuropathy who presents to the ER with acute onset left arm weakness that started early this morning. Patient lives alone and has been dealing with his chronic pain. He attempted a fentanyl patch yesterday. On Friday evening he fell down 6 steps on the stairs fortunately without significant injuries. However over the next 48 hours he started noticing weakness involving left upper extremity unable to grasp objects and noticed wrist dropping. He denied associated thunderclap headache, tearing neck pain, incontinence, loss of consciousness, vertigo, diplopia or swallowing difficulty. He however had progressive worsening of neck and right shoulder pain following fall. He was evaluated the pain clinic and was subsequently referred to the ER for evaluation of weakness involving his left upper extremities concerning for neurological changes. Initial work-up in the ER was consistent with possible acute CVA with NIH score of 2. Stroke neurologist consulted. Brain MRI/CT angiogram head neck unremarkable for acute process. Neurology recommended aspirin Plavix and statin and a C-spine MRI to rule out nerve impingement as a cause of left arm weakness. Hospitalist service was consulted At the time of evaluation patient is alert and oriented. He was able to answer most the question endorse history as above. He denies recent changes in medications, seizure episodes. Patient denies associated fever, diarrhea, dysuria, chest pain or shortness of breath 11/22-patient doing well. No overnight events. Persistent left wrist drop. Right shoulder pain. No telemetry events. MRI C-spine today. Ongoing physical therapy. Tolerating diet. On aspirin Plavix statin. 7/15-persistent wrist drop but improved since previous day. MRI shows multilevel spinal stenosis but no acute process. Start high-dose steroids/B12. Check vasculitis screen. Remains afebrile with normal white count, sodium 132, creatinine 1.1 11/24-patient doing well. Persistent wrist drop but improved bullet maker and finger function. Rheumatoid factor negative. ELINOR screen pending. Discharging advised to follow-up with neurology for peripheral neuropathy evaluation Discharge diagnosis: . Time Spent with Patient Time attestation: Total time spent providing and/or coordinating discharge services: EXAM Constitutional Vitals: Temp Pulse Resp BP Pulse Ox 97.6 F 80 16 124/92 95 11/25/19 08:01 11/24/19 14:00 11/25/19 06:02 11/25/19 08:01 11/25/19 08:01 Discharge Data Data Completed and Pending Labs on day of discharge: Labs from last 24 hours 11/25/19 11/25/19 11/24/19 05:00 05:00 05:02 WBC 7.3 RBC 3.40 L Hgb 10.2 L Hct 32.0 L MCV 94.1 MCH 30.0 MCHC 31.9 RDW 14.8 H Plt Count 288 MPV 9.0 Total Counted 100 Seg Neutrophils % 47 Band Neutrophils % 1 Lymphocytes % 46 Monocytes % (Manual) 5 Eosinophils % (Manual) 1 Platelet Estimate Normal RBC Morphology Abnorm A Anisocytosis Few A ESR Sodium 134 Potassium 3.7 Chloride 96 Carbon Dioxide 25 Anion Gap 13.0 BUN 29 H Creatinine 1.1 GFR Calculation 69 Glucose 104 Uric Acid 6.7 Calcium 9.0 Phosphorus 4.1 Magnesium 1.8 Total Bilirubin 0.2 Direct Bilirubin < 0.2 GGT 30 AST 15 ALT < 5 Alkaline Phosphatase 71 Lactate Dehydrogenase 168 C-Reactive Protein Total Protein 7.2 Albumin 3.6 Globulin 3.6 Albumin/Globulin Ratio 1.0 Triglycerides 84 Rheumatoid Factor 10 ELINOR Screen Pending 11/24/19 11/24/19 05:02 05:02 WBC RBC Hgb Hct MCV MCH MCHC RDW Plt Count MPV Total Counted Seg Neutrophils % Band Neutrophils % Lymphocytes % Monocytes % (Manual) Eosinophils % (Manual) Platelet Estimate RBC Morphology Anisocytosis ESR 76 H Sodium Potassium Chloride Carbon Dioxide Anion Gap BUN Creatinine GFR Calculation Glucose Uric Acid Calcium Phosphorus Magnesium Total Bilirubin Direct Bilirubin GGT AST ALT Alkaline Phosphatase Lactate Dehydrogenase C-Reactive Protein 7.2 H Total Protein Albumin Globulin Albumin/Globulin Ratio Triglycerides Rheumatoid Factor ELINOR Screen Discharge Plan Patient/Caregiver Discharge Instructions Activity: increase activity as tolerated Diet: Regular Diet Instructions: Wrist Injury (GEN), Degenerative Disc Disease (GEN) Activity Restrictions/Additional Instructions: Continue aspirin/statin Follow-up neurology as outpatient for mononeuritis/wristdrop evaluation Continue outpatient PT Return to ER if worsening neurological symptoms noted. Follow-up with pain clinic Dr. Massey next available appointment Prescriptions: New aspirin 81 mg Tablet,Chewable 325 mg CHEWED DAILY Qty: 30 RF: 0 Continued tramadol 50 mg tablet 50 mg PO TID PRN (Reason: Pain) RF: 0 mecobalamin (vitamin B12) 1,000 mcg tablet,chewable 1,000 mcg PO QDAY RF: 0 acetaminophen [Acetaminophen Extra Strength] 500 mg tablet 1,000 mg PO TIDP PRN (Reason: Pain) RF: 0 clonazepam 2 mg tablet 2 mg PO TID RF: 0 cyanocobalamin (vitamin B-12) 1,000 mcg/mL solution 1,000 mcg IM MONTHLY RF: 0 tamsulosin [Flomax] 0.4 mg capsule 0.8 mg PO HS RF: 0 simvastatin 40 mg tablet 40 mg PO HS RF: 0 omeprazole 20 mg capsule,delayed release(DR/EC) 20 mg PO DAILY RF: 0 fexofenadine 180 mg tablet 180 - 360 mg PO DAILY RF: 0 potassium chloride 20 mEq tablet,ER particles/crystals 30 meq PO DAILY RF: 0 levothyroxine 125 mcg Tablet 125 mcg PO QDAY RF: 0 hydrochlorothiazide 25 mg Tablet 25 mg PO QAM RF: 0 furosemide 20 mg Tablet 40 mg PO QAM RF: 0 trazodone 50 mg Tablet 50 - 100 mg PO QHS RF: 0 Mucinex 1,200 mg Tablet Extended Release 12hr 1,200 mg PO TID RF: 0 gabapentin 600 mg Tablet 600 mg PO TID RF: 0 melatonin 10 mg Tablet 10 mg PO HS PRN (Reason: Insomnia) RF: 0 polyethylene glycol 3350 [Miralax] 17 gram Powder In Packet 17 g PO BIDP PRN (Reason: Constipation) RF: 0 montelukast 10 mg Tablet 10 mg PO QDAY RF: 0 methocarbamol 500 mg Tablet 500 mg PO QID RF: 0 citalopram 20 mg Tablet 20 mg PO QDAY RF: 0 ipratropium bromide 42 mcg (0.06 %) [place],Non-Aerosol 2 spray INTRANASAL TID RF: 0 docusate sodium 250 mg Capsule 500 mg PO BID RF: 0 bupropion HCl [Wellbutrin XL] 300 mg Tablet Extended Release 24 Hr 300 mg PO QAM RF: 0 oxycodone 10 mg Tablet 10 mg PO Q6H PRN (Reason: Pain) RF: 0 Follow Up Plan Follow up with: Jocy Bonilla MD [Primary Care Provider] - 12/01/19 10:45 am (Please arrive at 10:30 am) Chava Massey MD [Physician] - 12/09/19 8:00 am () Patient Disposition: Home, Self-Care Hospital Course: Discharge diagnosis * Left wrist drop -possible cervical radiculopathy versus mononeuritis/versus brachial plexus injury from recent fall. No significant response to steroids/B12. Negative rheumatoid factor. Inflammatory markers elevated. No evidence of CVA on brain MRI. Continue aspirin/Plavix/statin per neuro recommendations. Recommend outpatient neurology follow-up * Weakness/deconditioning underwent physical therapy * Anxiety disorder remained stable on citalopram/trazodone * GERD continue PPI * Chronic pain follows up with pain clinic as outpatient. * BPH continue tamsulosin * Hypothyroidism continue thyroxine Brief hospital course Mr. Nathan is a 69 year old M with a history of chronic pain on pain pump/multilevel spinal DJD with pain and history of fusion, anxiety, neuropathy who presents to the ER with acute onset left arm weakness that started early this morning. Patient lives alone and has been dealing with his chronic pain. He attempted a fentanyl patch yesterday. On Friday evening he fell down 6 steps on the stairs fortunately without significant injuries. However over the next 48 hours he started noticing weakness involving left upper extremity unable to grasp objects and noticed wrist dropping. He denied associated thunderclap headache, tearing neck pain, incontinence, loss of consciousness, vertigo, diplopia or swallowing difficulty. He however had progressive worsening of neck and right shoulder pain following fall. He was evaluated the pain clinic and was subsequently referred to the ER for evaluation of weakness involving his left upper extremities concerning for neurological changes. Initial work-up in the ER was consistent with possible acute CVA with NIH score of 2. Stroke neurologist consulted. Brain MRI/CT angiogram head neck unremarkable for acute process. Neurology recommended aspirin Plavix and statin and a C-spine MRI to rule out nerve impingement as a cause of left arm weakness. Hospitalist service was consulted At the time of evaluation patient is alert and oriented. He was able to answer most the question endorse history as above. He denies recent changes in medications, seizure episodes. Patient denies associated fever, diarrhea, dysuria, chest pain or shortness of breath 11/22-patient doing well. No overnight events. Persistent left wrist drop. Right shoulder pain. No telemetry events. MRI C-spine today. Ongoing physical therapy. Tolerating diet. On aspirin Plavix statin. 11/23-persistent wrist drop but improved since previous day. MRI shows multilevel spinal stenosis but no acute process. Start high-dose steroids/B12. Check vasculitis screen. Remains afebrile with normal white count, sodium 132, creatinine 1.1 11/24-patient doing well. Persistent wrist drop but improved bullet maker and finger function. Rheumatoid factor negative. ELINOR screen pending. Discharging advised to follow-up with neurology for peripheral neuropathy evaluation Prognosis: Good Overall status at discharge: patient is progressing back to baseline Discharge Orders: Discharge Order (Routine); Ordered 11/25/19 Ordered By: Clay BLAIR VTE Deep Vein Thrombosis/Pulmonary Embolism Present on Admission: No
[2019-11-25 16:17] LABS: Anti-Nuclear Antibody Pattern HOMOGENEOUS
--- NOTE | 2019-12-03 14:22 | Cat Scan Report ---
INDICATION: numbness and weakness in left hand COMPARISON: Brain CT scan dated 11/22/2019 TECHNIQUE: Axial images were obtained through the upper chest, neck, and head during arterial phase. MIP and CPR reformatted images. 90ml Isovue 370 injected intravenously. FINDINGS: AORTIC ARCH:Calcified atherosclerotic plaque. Origins of the left subclavian artery, left vertebral artery, left common carotid artery, innominate artery, right common carotid artery, right subclavian artery are negative. There is calcification at the origin of the right vertebral artery. There is probable stenosis. Right vertebral artery is otherwise patent and negative CAROTID ARTERIES:Right: Right common carotid artery is negative. No stenosis or occlusion. Calcified plaque at the origin of the right internal carotid artery. No significant stenosis or evidence for ulceration. Right internal carotid artery is otherwise negative. No stenosis or occlusion. No fibromuscular dysplasia or dissection. Left: Left common carotid artery is negative. No stenosis or occlusion Calcified plaque at the origin of left internal carotid artery. No significant stenosis. No evidence for ulceration. Left internal carotid artery is otherwise negative. There is no stenosis or occlusion. No dissection or evidence for fibromuscular dysplasia VERTEBRAL ARTERIES:Calcified plaque and hemodynamically significant stenosis at the origin of the right vertebral artery. Vertebral arteries are otherwise negative [place]:[Calcified plaque in the cavernous segments of both internal carotid arteries. Cavernous and supraclinoid internal carotid arteries are otherwise negative and patent . No significant stenosis or occlusion. M1 segments of the middle cerebral arteries and A1 segments of the anterior cerebral arteries are negative. Intracranial vertebral arteries and basilar artery are negative. Posterior cerebral arteries and superior cerebellar arteries are negative] INTRACRANIAL CIRCULATION:No intracranial branch occlusion. No arteriovenous malformation or aneurysm No dural sinus occlusion UPPER CHEST:No pulmonary parenchymal mass or focal infiltrate. Superior mediastinum is negative NECK:No solid or cystic soft tissue mass. No pathologic lymphadenopathy. BRAIN:No acute intracranial hemorrhage. No focal attenuation abnormalities or pathologic contrast enhancement. IMPRESSION: 1. Mild calcified atherosclerotic plaque as above 2. Probable hemodynamically significant stenosis at the origin of the right vertebral artery The exam was performed using radiation dose optimization techniques including, but not limited to, automated exposure control, adjustment of the mA and/or kV according to patient size and use of iterative reconstruction technique. Interpreted and Authenticated by: Garry Caballero 12/03/19
== END 2019-11-25 12:12 | disposition home or self-care (01) ==
LOC: ED 11:53 → INTOOBSV 20:01 → ICU 20:01
PROVIDERS: ADMIT Internal Medicine; ATTEND Internal Medicine